=== PATIENT | female | born 1990 | race Caucasian/White ===

== ENCOUNTER → 2016-06-24 | Outpatient (CLI) | payer BC, OTHER ==
[2016-06-24 17:28] LABS: CH 30.6; CHCM 33.6; HCT 39.8 % (34.0-46.0); HDW 2.51; HGB 13.1 gm/dL (11.4-16.0); MCH 30.1 pg (25.0-35.0); MCV 91.3 fL (80.0-100.0); Mean Platelet Volume 6.9; RBC 4.36 m/uL (3.80-5.40); RDW 13.2 % (11.5-15.5); WBC 7.4 k/uL (3.8-10.6)
[2016-06-24 17:38] LABS: Glucose 93 mg/dL (74-99); Non-African American GFR(MDRD) >60 (>60 ml/min/1.73 sqM)
[2016-06-24 18:10] LABS: Hepatitis B Surface Ag Index 0.07
[2016-06-25 04:40] LABS: Toxoplasma Antibody (IgG) <3.0 IU/mL (<7.2)
[2016-06-25 07:36] LABS: HIV-1/HIV-2 Ab Screen NONREAC (NON REAC)
== END | disposition home or self-care (01) ==
LOC: LABWHC1 17:01
PROVIDERS: ATTEND Obstetrics & Gynecology
DX: Z34.81 Encounter for supervision of other normal pregnancy, first trimester (principal); Z3A.00 Weeks of gestation of pregnancy not specified
CPT/HCPCS: 36415; 82565; 82947; 85027; 86762; 86777; 86778; 86780; 86850; 86900; 86901; 87340; 87389

== ENCOUNTER → 2016-08-04 | Outpatient (CLI) | payer BC, OTHER ==
--- NOTE | 2016-08-04 10:07 | US ---
EXAMINATION TYPE: US OB anatomy transabd DATE OF EXAM: 08/04/2016 9:51 AM COMPARISON: NONE HISTORY: LGA, Anatomy Scan TECHNIQUE: Transabdominal (TA) EXAM MEASUREMENTS: GESTATIONAL AGE / DATING Physician Established: (19 weeks/0 days) EDC: 12/29/2016 Dates by LMP: (19 weeks/0 days) EDC: 12/29/2016 Dates by First Scan: No prior Dates by Current Scan for: (18 weeks/1 days) EDC: 01/04/2017 SURVEY IUP: Single PLACENTA: Posterior PREVIA: Low Lying YAMILETH: 12.2 cm Normal CERVICAL LENGTH (transabdominal: norm > 3.0cm): 3.6 cm BIOMETRY PRESENTATION: Breech BPD: 4.0 cm 18 weeks / 0 days HC: 15.4 cm 18 weeks / 2 days AC: 12.9 cm 18 weeks / 3 days FL: 2.8 cm 18 weeks / 3 days ESTIMATED WEIGHT IN GRAMS: 238 grams ESTIMATED WEIGHT IN LBS/OZS: 0 lbs. 8 oz. WEIGHT PERCENTAGE BASED ON ESTABLISHED DATE: 16 % HC/AC: 1.19 Normal FL/AC: 21 Normal HEART RATE: 160 bpm RHYTHM: Normal ANATOMY SEEN (within normal limits): * Lateral Vent (< 1 cm) 0.8 cm * Cisterna Magna (< 1.1 cm) 0.3 cm * Nuchal Fold (< 0.6 cm) 0.3 cm * Cerebellum (varies with age) 1.7 cm Choroid Plexus (bilateral) Midline Falx Cavus Septi Pellucidi Four Chamber Heart Outflow tracts: LVOT/RVOT Situs Nose / Lips Diaphragm Kidneys (bilateral) Bladder Cord Insert Three Vessel Cord Longitudinal Spine Transverse Spine Arms (bilateral) Legs (bilateral) ANATOMY SEEN (does not appear within normal limits): Stomach IMPRESSION: 1. Single, Viable IUP/ Low-lying posterior placenta/ Stomach appeared possibly overly distended/prom inent during entire exam. Recommend a short-term follow-up to assess the stomach post 20 weeks gestat ion.
== END | disposition home or self-care (01) ==
LOC: RADUSWWP 08:58
PROVIDERS: ATTEND Obstetrics & Gynecology
DX: O36.62X0 Maternal care for excessive fetal growth, second trimester, not applicable or unspecified (principal); Z3A.18 18 weeks gestation of pregnancy
CPT/HCPCS: 76811

== ENCOUNTER → 2016-09-15 | Outpatient (CLI) | payer BC, OTHER ==
[2016-09-15 10:35] LABS: CH 30.6; CHCM 32.6; HCT 33.8 % (34.0-46.0); HDW 3.04; HGB 11.1 gm/dL (11.4-16.0); MCHC 32.9 g/dL (31.0-37.0); MCV 94.2 fL (80.0-100.0); Mean Platelet Volume 7.4; RBC 3.59 m/uL (3.80-5.40); RDW 13.7 % (11.5-15.5); WBC 7.5 k/uL (3.8-10.6)
== END ==
LOC: LABWHC1 08:36
PROVIDERS: ATTEND Obstetrics & Gynecology
DX: Z34.82 Encounter for supervision of other normal pregnancy, second trimester (principal)
CPT/HCPCS: 36415; 82950; 85027

== ENCOUNTER 2016-09-28 10:41 | Outpatient (CLI) | payer BC, OTHER ==
[2016-09-28 11:00] LABS: Glucose,Whole Blood 81 mg/dL (75-99)
[2016-09-28 11:25] VITALS: BP 126/85; PULSE 102; RESP 16; TEMP 97
== END 2016-09-28 11:22 | disposition home or self-care (01) ==
LOC: FBPOP 10:41
PROVIDERS: ATTEND Obstetrics & Gynecology
DX: O26.92 Pregnancy related conditions, unspecified, second trimester (principal); Z3A.26 26 weeks gestation of pregnancy
CPT/HCPCS: 99213

== ENCOUNTER 2016-10-01 11:27 | Outpatient (CLI) | payer BC, OTHER ==
[2016-10-01 11:48] VITALS: BP 120/72; PULSE 121; RESP 20; TEMP 97
--- NOTE | 2016-10-01 13:51 | P.MSEPDOC ---
Presenting Problems - Arrival Data Date of Arrival on Unit: 10/01/16 Time of Arrival on Unit: 11:27 Mode of Transport: Ambulatory - Complaint OB-Reason for Admission/Chief Complaint: Other Medical History - Information : 2 Para: 1 Term: 1 : 0 Abortions: Spontaneous or Elective: 0 Number of Living Children: 1 - Gestational Age Expected Date of Delivery: 12/29/16 Gestational Age by LAURA (wks/days): 27 Weeks and 2 Days Review of Systems - Review of Systems Constitutional: No problems Breast: No problems ENT: No problems Cardiovascular: No problems Respiratory: No problems Gastrointestinal: No problems Genitourinary: No problems Musculoskeletal: No problems Neurological: No problems Skin: No problems Comment: removal of part of rt kidney and left ovary at age 15 for a 9#2oz cyst Vital Signs - Temperature Temperature: 97.0 F Temperature Source: Skin - Pulse Brachial Pulse Rate: 121 Pulse Assessment Method: Automatic Cuff - Respirations Respiratory Rate: 20 Oxygen Delivery Method: Room Air O2 Sat by Pulse Oximetry: 99 - Blood Pressure Right Arm Blood Pressure: 120/72 Blood Pressure Mean: 88 Blood Pressure Source: Automatic Cuff Medical Screen Scoring (Pre) - Maternal Vital Signs Maternal Temperature: N/A Maternal Blood Pressure: N/A Signs of Preeclampsia: N/A Maternal Respirations: N/A - Maternal Trauma Maternal Trauma: N/A - Assessment Baseline FHR: 150 Heart Rate - NICHD Category: Category I (Normal) = 0 - Total Score Total Score (Pre): 0 Medical Screen Scoring (Post) - Cervical Exam Dilation: Exam Deferred Effacement: Exam Deferred Membranes: Intact - Uterine Contractions Frequency: N/A Duration: N/A Intensity: N/A - Maternal Vital Signs Maternal Temperature: N/A Maternal Blood Pressure: N/A Signs of Preeclampsia: N/A Maternal Respirations: N/A - Maternal Trauma Maternal Trauma: N/A - Total Score Total Score (Post): 0 - Post Treatment Level of Risk Post Treatment Level of Risk: Low (0-5) Physician Notification (Post) - Physician Notified Physician Notified Date: 10/01/16 Physician Notified Time: 11:59 Physician/Practitioner Notified:: dr novoa Spoke With: dr novoa New Order Received: Yes - Notification Comment Comment: May discharge home Disposition - Disposition OB Disposition: Triage, Discharge to home, Written follow up instructions reviewed Discharge Date: 10/01/16 Discharge Time: 12:10 I agree with the RN Medical Screening Exam: Yes Risk & Benefit of care provided described in d/c instruction: Yes Diagnosis: PAROXYSMAL TACHYCARDIA, UNSPECIFIED (Pt referre)
== END 2016-10-01 12:09 | disposition home or self-care (01) ==
LOC: FBPOP 11:27
PROVIDERS: ATTEND Obstetrics & Gynecology
DX: O99.412 Diseases of the circulatory system complicating pregnancy, second trimester (principal); I47.9 Paroxysmal tachycardia, unspecified; Z3A.27 27 weeks gestation of pregnancy
CPT/HCPCS: 99213

== ENCOUNTER → 2016-10-06 | Outpatient (CLI) | payer BC, OTHER | END | disposition home or self-care (01) | LOC: LABWHC1 12:56 | PROVIDERS: ATTEND Internal Medicine Cardiovascular Disease | DX: R00.0 Tachycardia, unspecified (principal) | CPT/HCPCS: 36415; 84439; 84443 ==

== ENCOUNTER 2016-11-14 14:13 | Outpatient (CLI) | payer BC, OTHER ==
[2016-11-14 15:19] VITALS: BP 126/70; PULSE 100; RESP 18; TEMP 96.6
--- NOTE | 2016-11-15 06:13 | P.MSEPDOC ---
Presenting Problems - Arrival Data Date of Arrival on Unit: 11/14/16 Time of Arrival on Unit: 14:10 Mode of Transport: Wheelchair - Complaint OB-Reason for Admission/Chief Complaint: Vaginal Bleeding Medical History - Information : 2 Para: 1 Term: 1 : 0 Abortions: Spontaneous or Elective: 0 Number of Living Children: 1 - Gestational Age Expected Date of Delivery: 12/29/16 Gestational Age by LAUAR (wks/days): 33 Weeks and 5 Days Review of Systems - Review of Systems Constitutional: No problems Breast: No problems ENT: No problems Cardiovascular: No problems Respiratory: No problems Gastrointestinal: No problems Genitourinary: No problems Musculoskeletal: No problems Neurological: No problems Skin: No problems Vital Signs - Temperature Temperature: 96.6 F Temperature Source: Tympanic - Pulse Right Brachial Pulse Rate: 100 Pulse Assessment Method: Automatic Cuff - Respirations Respiratory Rate: 18 Oxygen Delivery Method: Room Air - Blood Pressure Right Arm Blood Pressure: 126/70 Blood Pressure Mean: 88 Blood Pressure Source: Automatic Cuff Medical Screen Scoring (Pre) - Cervical Exam Dilation: Exam Deferred Effacement: Exam Deferred Membranes: Intact - Uterine Contractions Frequency: > 5 minutes apart = 1 Duration: N/A Intensity: N/A - Maternal Vital Signs Maternal Temperature: N/A Maternal Blood Pressure: N/A Signs of Preeclampsia: N/A Maternal Respirations: N/A - Maternal Trauma Maternal Trauma: N/A - Assessment Baseline FHR: 130 Heart Rate - NICHD Category: Category I (Normal) = 0 NST: Reactive Position: N/A - Total Score Total Score (Pre): 1 - Level of Risk Level of Risk: Low (0-5) Physician Notification (Pre) - Physician Notified Physician Notified Date: 11/14/16 Physician Notified Time: 14:48 Physician/Practitioner Notifed:: Dr. Bill Spoke With: Dr. Bill New Order Received: Yes - Notification Comment Comment: discharge pt home with instructions to be on pelvic rest until she sees Dr. Bill in the office at next scheduled appt Medical Screen Scoring (Post) - Cervical Exam Dilation: Exam Deferred Effacement: Exam Deferred - Uterine Contractions Frequency: > 5 minutes apart = 1 Duration: N/A Intensity: N/A - Maternal Vital Signs Maternal Temperature: N/A Maternal Blood Pressure: N/A Signs of Preeclampsia: N/A Maternal Respirations: N/A - Maternal Trauma Maternal Trauma: N/A - Total Score Total Score (Post): 1 - Post Treatment Level of Risk Post Treatment Level of Risk: Low (0-5) Physician Notification (Post) - Physician Notified Physician Notified Date: 11/14/16 Physician Notified Time: 14:48 Physician/Practitioner Notified:: Dr. Bill Spoke With: Dr. Bill New Order Received: Yes - Notification Comment Comment: discharge pt home Disposition - Disposition OB Disposition: Physician follow up in office, Discharge to home, Written follow up instructions reviewed Discharge Date: 11/14/16 Discharge Time: 15:00 I agree with the RN Medical Screening Exam: Yes Risk & Benefit of care provided described in d/c instruction: Yes Diagnosis: 33 WEEKS GESTATION OF
== END 2016-11-14 15:00 | disposition home or self-care (01) ==
LOC: FBPOP 14:13
PROVIDERS: ATTEND Obstetrics & Gynecology
DX: O26.853 Spotting complicating pregnancy, third trimester (principal); Z3A.33 33 weeks gestation of pregnancy
CPT/HCPCS: 59025; 99213

== ENCOUNTER 2016-12-01 16:49 | Outpatient (CLI) | payer BC, OTHER ==
[2016-12-01 18:11] VITALS: BP 127/86; PULSE 108; RESP 18; TEMP 98
--- NOTE | 2016-12-01 20:25 | P.MSEPDOC ---
Presenting Problems - Arrival Data Date of Arrival on Unit: 12/01/16 Time of Arrival on Unit: 16:50 Mode of Transport: Ambulatory - Complaint OB-Reason for Admission/Chief Complaint: Other Comment: Complaints of contractions Medical History - Information : 2 Para: 1 Term: 1 : 0 Abortions: Spontaneous or Elective: 0 Number of Living Children: 1 - Gestational Age Expected Date of Delivery: 12/29/16 Gestational Age by LAURA (wks/days): 36 Weeks and 0 Days Review of Systems - Review of Systems Constitutional: No problems Breast: No problems ENT: No problems Cardiovascular: No problems Respiratory: No problems Gastrointestinal: No problems Genitourinary: No problems Musculoskeletal: No problems Neurological: No problems Skin: No problems Vital Signs - Temperature Temperature: 98 F Temperature Source: Oral - Pulse Right Brachial Pulse Rate: 108 Pulse Assessment Method: Automatic Cuff - Respirations Respiratory Rate: 18 Oxygen Delivery Method: Room Air - Blood Pressure Right Arm Blood Pressure: 127/86 Blood Pressure Mean: 99 Blood Pressure Source: Automatic Cuff Medical Screen Scoring (Pre) - Cervical Exam Dilation: 0 cm = 0 Membranes: Intact - Uterine Contractions Frequency: > or = 36 weeks =2 Duration: N/A Intensity: N/A - Maternal Vital Signs Maternal Temperature: N/A Maternal Blood Pressure: N/A Signs of Preeclampsia: N/A - Maternal Trauma Maternal Trauma: N/A - Assessment Baseline FHR: 140 Heart Rate - NICHD Category: Category I (Normal) = 0 - Total Score Total Score (Pre): 2 - Level of Risk Level of Risk: Low (0-5) Physician Notification (Pre) - Physician Notified Physician Notified Date: 12/01/16 Physician Notified Time: 17:39 Physician/Practitioner Notifed:: Dr. Meek Spoke With: Dr. Meek New Order Received: Yes (Oral hydration and recheck pt in one hour) - Notification Comment Comment: Dr. Meek given report on pt, order recieved to orally hydrate pt, monitor contractions, and recheck cervix in one hour from phone call. Medical Screen Scoring (Post) - Cervical Exam Dilation: 0 cm = 0 Membranes: Intact - Uterine Contractions Frequency: > or = 36 weeks =2 - Maternal Vital Signs Maternal Temperature: N/A Maternal Blood Pressure: N/A Signs of Preeclampsia: N/A Maternal Respirations: N/A - Maternal Trauma Maternal Trauma: N/A - Assessment Heart Rate: 140 Heart Rate - NICHD Category: Category I (Normal) = 0 - Total Score Total Score (Post): 2 - Post Treatment Level of Risk Post Treatment Level of Risk: Low (0-5) Physician Notification (Post) - Physician Notified Physician Notified Date: 12/01/16 Physician Notified Time: 17:39 Physician/Practitioner Notified:: Dr. Meek Spoke With: Dr. Meek New Order Received: Yes (Discharge pt to home) - Notification Comment Comment: Discharge pt to home if no cervical change and reactive nst one hour after initial cervical check Disposition - Disposition OB Disposition: Discharge to home Discharge Date: 12/01/16 Discharge Time: 18:50 I agree with the RN Medical Screening Exam: Yes Risk & Benefit of care provided described in d/c instruction: Yes Diagnosis: FALSE LABOR BEFORE 37 COMPLETED WEEKS OF GEST, THIRD TRI
== END 2016-12-01 18:50 | disposition home or self-care (01) ==
LOC: FBPOP 16:49
PROVIDERS: ATTEND Obstetrics & Gynecology
DX: O47.03 False labor before 37 completed weeks of gestation, third trimester (principal); Z3A.36 36 weeks gestation of pregnancy
CPT/HCPCS: 99213

== ENCOUNTER 2016-12-12 17:35 | Outpatient (CLI) | payer BC, OTHER ==
[2016-12-12 18:47] VITALS: BP 124/85; PULSE 128; RESP 18; TEMP 97.6
--- NOTE | 2016-12-13 06:29 | P.MSEPDOC ---
Presenting Problems - Arrival Data Date of Arrival on Unit: 12/12/16 Time of Arrival on Unit: 17:40 Mode of Transport: Ambulatory - Complaint OB-Reason for Admission/Chief Complaint: Possible Onset of Labor Medical History - Information : 2 Para: 1 Term: 1 : 0 Abortions: Spontaneous or Elective: 0 Number of Living Children: 1 - Gestational Age Expected Date of Delivery: 12/29/16 Gestational Age by LAURA (wks/days): 37 Weeks and 5 Days Review of Systems - Review of Systems Constitutional: No problems Breast: No problems ENT: No problems Cardiovascular: No problems Respiratory: No problems Gastrointestinal: No problems Genitourinary: No problems Musculoskeletal: No problems Neurological: No problems Skin: No problems Vital Signs - Temperature Temperature: 97.6 F Temperature Source: Oral - Pulse Right Brachial Pulse Rate: 128 Pulse Assessment Method: Automatic Cuff - Respirations Respiratory Rate: 18 Oxygen Delivery Method: Room Air O2 Sat by Pulse Oximetry: 98 - Blood Pressure Right Arm Blood Pressure: 124/85 Blood Pressure Mean: 98 Blood Pressure Source: Automatic Cuff Medical Screen Scoring (Pre) - Cervical Exam Dilation: 1-3 cm = 1 Membranes: Intact - Uterine Contractions Frequency: > or = 36 weeks =2 Duration: > 40 seconds = 2 Intensity: N/A - Maternal Vital Signs Maternal Temperature: N/A Maternal Blood Pressure: N/A Signs of Preeclampsia: N/A Maternal Respirations: N/A - Maternal Trauma Maternal Trauma: N/A - Assessment Baseline FHR: 150 Heart Rate - NICHD Category: Category I (Normal) = 0 NST: Reactive Position: N/A Station: N/A - Total Score Total Score (Pre): 5 - Level of Risk Level of Risk: Low (0-5) Physician Notification (Pre) - Physician Notified Physician/Practitioner Notifed:: Dr. Bill Spoke With: Dr. Bill New Order Received: Yes (D/c pt to home) Medical Screen Scoring (Post) - Cervical Exam Dilation: 4-7 cm = 2 Membranes: Intact - Uterine Contractions Frequency: > or = 36 weeks =2 Duration: N/A Intensity: N/A - Maternal Vital Signs Maternal Temperature: N/A Maternal Blood Pressure: N/A Signs of Preeclampsia: N/A Maternal Respirations: N/A - Maternal Trauma Maternal Trauma: N/A - Assessment Heart Rate: 150 Heart Rate - NICHD Category: Category I (Normal) = 0 NST: Reactive Position: N/A Station: N/A - Total Score Total Score (Post): 4 - Post Treatment Level of Risk Post Treatment Level of Risk: Low (0-5) Physician Notification (Post) - Physician Notified Physician Notified Date: 12/12/16 Physician Notified Time: 19:12 Physician/Practitioner Notified:: Dr. Bill Spoke With: Dr. Bill New Order Received: Yes (D/c pt to home) Disposition - Disposition OB Disposition: Discharge to home Discharge Date: 12/12/16 Discharge Time: 19:20 I agree with the RN Medical Screening Exam: Yes Risk & Benefit of care provided described in d/c instruction: Yes Diagnosis: FALSE LABOR AT OR AFTER 37 COMPLETED WEEKS OF GESTATION
== END 2016-12-12 19:20 | disposition home or self-care (01) ==
LOC: FBPOP 17:35
PROVIDERS: ATTEND Obstetrics & Gynecology
DX: O47.1 False labor at or after 37 completed weeks of gestation (principal); Z3A.37 37 weeks gestation of pregnancy
CPT/HCPCS: 59025; 99213

== ENCOUNTER 2016-12-23 05:51 | Inpatient (IN) | payer BC, OTHER ==
[2016-12-23] MEDS ORDERED: METHYLERGONOVINE 0.2 MG/ML 1 ML AMP IM PRN (06:03)
[2016-12-23] MEDS ORDERED: LIDOCAINE 1% (PF) 10 MG/ML (30 ML SDV) SQ PRN (06:03)
[2016-12-23] MEDS ORDERED: OXYTOCIN 10 UNIT/ML 1 ML VIAL IM PRN (06:03)
[2016-12-23] MEDS ORDERED: CARBOPROST TROMETHAMINE 250 MCG/ML 1 ML AMP IM PRN (06:03)
[2016-12-23] MEDS ORDERED: TERBUTALINE 1 MG/ML VIAL SQ PRN (06:03)
[2016-12-23] MEDS ORDERED: OXYTOCIN 20 UNITS/1000 ML NS 1,000 ML IV SCH ×2 (06:03→13:20)
[2016-12-23 06:14] LABS: Basophils % (A) 0 %; CHCM 31.7; Eosinophils # (A) 0.2 k/uL (0-0.7); Eosinophils % (A) 4 %; HCT 32.3 % (34.0-46.0); HDW 3.57; HGB 10.1 gm/dL (11.4-16.0); Hypochromasia Moderate; Luc # (Auto) 0.09; Luc % (Auto) 1; Lymphocytes # (A) 1.9 k/uL (1.0-4.8); Lymphocytes % (A) 29 %; MCH 25.9 pg (25.0-35.0); MCHC 31.4 g/dL (31.0-37.0); MCV 82.4 fL (80.0-100.0); Mean Platelet Volume 9.9; Monocytes # (A) 0.3 k/uL (0-1.0); Monocytes % (A) 5 %; Neutrophils % (A) 61 %; Poikilocytosis Slight; RBC 3.92 m/uL (3.80-5.40); RDW 15.9 % (11.5-15.5); WBC 6.5 k/uL (3.8-10.6); WBC (Perox) 6.61
[2016-12-23] MEDS: LACTATED RINGERS 1,000 ML IV SCH ×2 (06:16→09:26)
--- NOTE | 2016-12-23 06:36 | P.HPOB ---
History of Present Illness H&P Date: 12/23/16 Chief Complaint: Patient is requesting elective induction This patient is a pleasant 26-year-old 2 para 1 female estimated date of confinement 12/29/2016 estimated gestational age 39 and one sevenths weeks who presents to labor and delivery for requested induction of labor. Patient's care has been complicated by benign sinus tachycardia (maternal). I referred the patient to cardiology evaluation was negative but was placed on Lopressor 25 mg twice a day due to symptomatic sinus tachycardia. Patient also had a positive chlamydial culture at her initial visit however had 2 negative test of cures. Patient's been having a lot of contractions and is uncomfortable as requested induction at this time. Review of Systems Constitutional: Denies chills, Denies fever Ears, nose, mouth and throat: Denies headache, Denies sore throat Cardiovascular: Reports as per HPI, Reports rapid heart beat, Denies chest pain , Denies shortness of breath Respiratory: Denies cough Gastrointestinal: Reports heartburn Genitourinary: Reports Menstruation: Reports amenorrhea Neurological: Denies numbness, Denies weakness Psychiatric: Denies anxiety, Denies depression Past Medical History Additional Past Medical History / Comment(s): Benign sinus tachycardia. History of Any Multi-Drug Resistant Organisms: None Reported Additional Past Surgical History / Comment(s): Laparotomy with left oophorectomy. Past Anesthesia/Blood Transfusion Reactions: No Reported Reaction Past Psychological History: No Psychological Hx Reported Smoking Status: Never smoker Past Alcohol Use History: None Reported Past Drug Use History: None Reported Medications and Allergies Home Medications Medication Instructions Recorded Confirmed Type Vit,Calc78/Iron/Folic 1 tab PO DAILY 08/31/16 12/23/16 History [Pretab 29 mg-1 mg Tablet] Metoprolol/Hydrochlorothiazide 25 mg PO BID 11/14/16 12/23/16 History [Lopressor Hct 50-25 Tablet] Allergies Allergy/AdvReac Type Severity Reaction Status Date / Time No Known Allergies Allergy Verified 12/23/16 06:02 Exam - Vital Signs Vital signs: Intake and Output 12/22/16 12/22/16 12/23/16 14:59 22:59 06:59 Other: Weight 75.75 kg Patient Weight 12/23/16 06:59 Weight 75.75 kg - OBG Physical Exam Abdomen: bowel sounds normal, no diffuse tenderness, no bruit present, no guarding noted, no hepatomegaly, no splenomegaly, no mass Vagina: normal moisture, no discharge Cervix: Cervix is 4 cm and 50% effaced -2 station. Uterus: enlarged (Fundal height is consistent with a term .) Results blood work shows she is A positive, rubella immune, RPR nonreactive, hepatitis B negative, HIV nonreactive, group B strep was negative, Glucola was normal, ultrasounds have been normal as well. Result Diagrams: 12/23/16 06:06 Abnormal Lab Results - Last 24 Hours (Table) 12/23/16 Range/Units 06:06 Hgb 10.1 L (11.4-16.0) gm/dL Hct 32.3 L (34.0-46.0) % RDW 15.9 H (11.5-15.5) % Assessment and Plan (1) Third trimester Narrative/Plan: This patient is a pleasant 26-year-old 2 para 1 female 39 and one sevenths weeks gestation who is presenting for requested induction of labor due to maternal discomfort. Plan is induction of labor and anticipate vaginal delivery. Status: Acute (2) Elective induction of labor planned Status: Acute
[2016-12-23 06:44] VITALS: BMI 27.8
[2016-12-23] MEDS ORDERED: fentaNYL (PF) 50 MCG/ML 5 ML AMP ONE (08:56)
[2016-12-23] MEDS ORDERED: BUPIVACAINE (PF) 0.25% 30 ML VIAL ONE (08:56)
[2016-12-23] MEDS ORDERED: SODIUM CHLORIDE 0.9% 100 ML BAG ONE (08:56)
--- NOTE | 2016-12-23 13:12 | P.PROBDLV ---
Vaginal Delivery Note - . Vaginal Delivery Note: Normal vaginal delivery viable female Apgars 9 and 9 delivery time is 1252 hrs. . Please see dictated H&P for intimate details of this patient's admission. Brief summary this is a pleasant 26-year-old 2 para 1 female 39 and one sevenths weeks gestation who is admitted to labor and delivery for elective induction of labor. Patient is 4 cm dilated and has artificial rupture membranes for clear fluid. Labor is induced with Pitocin per protocol. Patient 's labor progresses and she does get an epidural for pain control. Patient gets to complete pushes the head to the perineum. Posterior perineum was supported and a midline episiotomy is made. We then have controlled delivery of infant's head over the perineum. It is straight occiput posterior presentation. There is also a tight nuchal cord which is doubly clamped cut reduced. Mouth and nares are bulb suctioned. With gentle downward traction we then have deliver the anterior and posterior shoulder and rest this 's body. This is a vigorous viable female Apgars are 9 and 9 delivery time is 1252 hrs After delivery of the the placenta spontaneously delivered intact. Estimated blood loss is 100 mL. Inspection of perineum shows a second- degree laceration was repaired with 3-0 Vicryl usual fashion excellent reapproximation is noted. All counts are correct 3. There are no complications. Infant and mother are stable delivery room.
[2016-12-23] MEDS ORDERED: SIMETHICONE 80 MG CHEWABLE PO PRN (13:20)
[2016-12-23] MEDS ORDERED: BENZOCAINE/MENTHOL SPRAY 1 GM/SPRAY AEROSOL TOPICAL PRN (13:20)
[2016-12-23] MEDS ORDERED: diphenhydrAMINE 25 MG CAP PO PRN (13:20)
[2016-12-23] MEDS ORDERED: Acetaminophen-Codeine 300-30mg TAB PO PRN ×2 (13:20)
[2016-12-23] MEDS ORDERED: LANOLIN CREAM 5 GM TUBE TOPICAL PRN (13:20)
[2016-12-23] MEDS ORDERED: diphenhydrAMINE 50 MG/ML 1 ML VIAL IVP PRN (13:20)
[2016-12-23] MEDS ORDERED: WITCH HAZEL 1 EACH MED..PAD TOPICAL PRN (13:20)
[2016-12-23] MEDS ORDERED: ACETAMINOPHEN TAB 325 MG TAB PO PRN (13:20)
[2016-12-23] MEDS ORDERED: BISACODYL 10 MG SUPP RECTAL PRN (13:20)
[2016-12-23] MEDS ORDERED: DIPH,PERTUS(ACELL)TETVAC-LF 0.5 ML VIAL IM ONE (13:20)
[2016-12-23] MEDS ORDERED: HYDROCORTISONE 2.5% RECTAL CREAM 30 GM TUBE RECTAL PRN (13:20)
[2016-12-23] MEDS ORDERED: ZOLPIDEM 5 MG TAB PO PRN (13:20)
[2016-12-23] MEDS: SENNOSIDES-DOCUSATE SODIUM 1 EACH TAB PO SCH ×2 (20:24→21:29)
[2016-12-23] MEDS: METOPROLOL TARTRATE 25 MG TAB PO SCH ×2 (21:28)
[2016-12-23] MEDS: IBUPROFEN 600 MG TAB PO PRN (21:29)
--- NOTE | 2016-12-24 06:29 | P.PNOBGVD ---
Subjective - Subjective Patient reports: Reports appetite normal, Reports voiding normally, Reports pain well controlled, Reports ambulating normally : doing well Objective - Latest Vital Signs Latest vital signs: Vital Signs Temp Pulse Resp BP Pulse Ox 12/24/16 00:00 98.4 F 77 14 111/77 99 12/23/16 19:30 98.3 F 96 16 131/79 98 12/23/16 15:47 106 H 16 126/80 12/23/16 15:21 98.9 F 106 H 16 126/80 12/23/16 14:51 98 16 115/85 12/23/16 14:20 98.9 F 101 H 16 124/84 12/23/16 14:06 99 16 132/87 12/23/16 13:51 96 16 124/83 12/23/16 13:36 94 16 123/83 12/23/16 13:21 108 H 16 127/83 Intake and Output 12/23/16 12/23/16 12/24/16 14:59 22:59 06:59 Intake Total 75 Balance 75 Intake: Oral 75 Other: # Voids 1 1 - Exam Lungs: bilateral: normal Chest: Normal S1, Normal S2 Extremities: Present: normal Abdomen: Present: normal appearance, soft Uterus: Present: normal, firm Assessment and Plan (1) Third trimester Narrative/Plan: day #1. Patient is resting without complaints wishes to go home. Vital signs are stable she is afebrile. Uterus is firm nontender she's having normal lochia. My impression this is a normal course. Plan is to continue routine care discharge home later today. Current Visit: Yes Status: Acute Code(s): Z34.93 - ENCNTR FOR SUPRVSN OF NORMAL PREG, UNSP, THIRD TRIMESTER SNOMED Code(s): 74647578 (2) Elective induction of labor planned Current Visit: Yes Status: Acute Code(s): [id number] - SNOMED Code(s): 822263111
--- NOTE | 2016-12-24 06:30 | P.DS ---
Providers Date of admission: 12/23/16 05:51 Expected date of discharge: 12/24/16 Attending physician: Avery Bill Primary care physician: Stated None - Discharge Diagnosis(es) (1) Third trimester Current Visit: Yes Status: Acute (2) Elective induction of labor planned Current Visit: Yes Status: Acute Hospital Course: Please see dictated H&P for intimate details of this patient's admission. Brief summary this is a pleasant 26-year-old 2 para 1 female 39 and one sevenths weeks gestation admitted to labor and delivery for requested induction of labor. Patient is admitted has uncomplicated induction of labor quickly goes on have a vaginal delivery viable female . Please see dictated delivery note. day 1 patient's felt stable for discharge home follow up with me in 6 weeks. Procedures: Induction of labor and normal vaginal delivery. Patient Condition at Discharge: Good Plan - Discharge Summary New Discharge Prescriptions: New Acetaminophen-Codeine 300-30mg [Tylenol w/codeine #3] 1 - 2 each PO Q4HR PRN #30 tab PRN Reason: Mild Pain exceeding Tylenol Ibuprofen [Motrin] 600 mg PO Q6HR PRN #40 tab PRN Reason: Mild Pain Or Fever >= 100.5 No Action Vit,Calc78/Iron/Folic [Pretab 29 mg-1 mg Tablet] 1 tab PO DAILY Metoprolol/Hydrochlorothiazide [Lopressor Hct 50-25 Tablet] 25 mg PO BID Discharge Medication List Vit,Calc78/Iron/Folic [Pretab 29 mg-1 mg Tablet] 1 tab PO DAILY [History] Metoprolol/Hydrochlorothiazide [Lopressor Hct 50-25 Tablet] 25 mg PO BID [History] Acetaminophen-Codeine 300-30mg [Tylenol w/codeine #3] 1 - 2 each PO Q4HR PRN # 30 tab 12/24/16 [Rx] Ibuprofen [Motrin] 600 mg PO Q6HR PRN #40 tab 12/24/16 [Rx] Follow up Appointment(s)/Referral(s): Avery Bill MD [STAFF PHYSICIAN] - 02/03/17 2:30 pm Patient Instructions/Handouts: Vaginal Delivery (DC) Activity/Diet/Wound Care/Special Instructions: No intercourse or anything per vagina for 6 weeks. Please call if any fever, chills, excessive vaginal bleeding, and/or abdominal pain Discharge Disposition: HOME SELF-CARE
[2016-12-24] MEDS: IBUPROFEN 600 MG TAB PO PRN (07:27)
[2016-12-24] MEDS: SENNOSIDES-DOCUSATE SODIUM 1 EACH TAB PO SCH (07:27)
[2016-12-24 08:25] VITALS: BP 115/66; PULSE 76; RESP 16; TEMP 98.3
[2016-12-24] MEDS: METOPROLOL TARTRATE 25 MG TAB PO SCH (08:33)
== END 2016-12-24 13:45 | disposition home or self-care (01) | DRG 774 ==
LOC: 4FBP 05:51
PROVIDERS: ADMIT Obstetrics & Gynecology; ATTEND Obstetrics & Gynecology
PROC: 0KQM0ZZ Repair Perineum Muscle, Open Approach (ICD-10-PCS; principal; 2016-12-23)
PROC: 00HU33Z Insertion of Infusion Device into Spinal Canal, Percutaneous Approach (ICD-10-PCS; 2016-12-23)
PROC: 3E0R3CZ (ICD-10-PCS; 2016-12-23)
PROC: 3E033VJ Introduction of Other Hormone into Peripheral Vein, Percutaneous Approach (ICD-10-PCS; 2016-12-23)
DX: O99.42 Diseases of the circulatory system complicating childbirth (principal); O69.1XX0 Labor and delivery complicated by cord around neck, with compression, not applicable or unspecified; O70.1 Second degree perineal laceration during delivery; Z37.0 Single live birth; Z3A.39 39 weeks gestation of pregnancy; Z79.899 Other long term (current) drug therapy
CPT/HCPCS: 85025; 88307; 90471; 90715

== ENCOUNTER → 2017-11-14 | Outpatient (CLI) | payer BC, OTHER ==
[2017-11-14 15:27] LABS: Basophils % (A) 1 %; Eosinophils # (A) 0.4 k/uL (0-0.7); Eosinophils % (A) 8 %; HCT 38.8 % (34.0-46.0); HGB 12.8 gm/dL (11.4-16.0); Lymphocytes # (A) 1.8 k/uL (1.0-4.8); Lymphocytes % (A) 34 %; MCH 28.9 pg (25.0-35.0); MCV 87.5 fL (80.0-100.0); Mean Platelet Volume 7.4; Monocytes # (A) 0.3 k/uL (0-1.0); Monocytes % (A) 6 %; Neutrophils # (A) 2.6 k/uL (1.3-7.7); Neutrophils % (A) 51 %; Platelet Count 240 k/uL (150-450); RBC 4.43 m/uL (3.80-5.40); RDW 14.1 % (11.5-15.5); WBC 5.2 k/uL (3.8-10.6)
[2017-11-15 02:20] LABS: Hemoglobin A1C 5.5 % (4.0-6.0)
[2017-11-15 02:34] LABS: Thyroid Peroxidase Antibodies <28.0 U/mL (0.0-60.0)
--- NOTE | 2017-11-15 07:38 | US ---
EXAMINATION TYPE: US thyroid st tissue head/neck DATE OF EXAM: 11/14/2017 COMPARISON: NONE CLINICAL HISTORY: E04.1 Thyroid Nodule. GLAND SIZE: Right Lobe: 6.0 x 1.0 x 1.8 cm Overall Parenchyma: homogenous Left Lobe: 5.4 x 1.2 x 1.6 cm Overall Parenchyma: homogeneous Isthmus Thickness: 0.2 cm NODULES RIGHT: # of nodules measured on right: 0 LEFT: # of nodules measured on left: 0 ISTHMUS: # of nodules measured in the isthmus: 0 Bilateral neck scanned, no evidence of lymphadenopathy. IMPRESSION: Thyroid glandular enlargement without discrete nodule seen.
[2017-11-15 09:05] LABS: Lyme IgG/IgM 0.1 Index
[2017-11-15 14:09] LABS: C-ANCA <1:20 Titer (<1:20); P-ANCA <1:20 Titer (<1:20)
[2017-11-15 14:38] LABS: Zinc, Serum 71 ug/dL (60-130)
== END | disposition home or self-care (01) ==
LOC: RADUSWWP 14:53
PROVIDERS: ATTEND Otolaryngology
DX: E04.9 Nontoxic goiter, unspecified (principal); R43.0 Anosmia; R43.2 Parageusia
CPT/HCPCS: 76536; 82607; 83036; 84439; 84443; 84630; 85025; 86038; 86255; 86376; 86618

== ENCOUNTER → 2017-11-28 | Outpatient (CLI) | payer BC, OTHER ==
--- NOTE | 2017-11-28 10:53 | MR ---
EXAMINATION TYPE: MR brain wo/w con DATE OF EXAM: 11/28/2017 COMPARISON: NONE HISTORY: Headache, loss of smell and taste TECHNIQUE: Multiplanar, multisequence imaging of the brain and brainstem is performed without IV cont rast. FINDINGS: Diffusion weighted images demonstrate no evidence of a recent infarct or other diffusion abnormality. There is no extraaxial fluid collection or significant white matter signal abnormality. The ventricu lar system and cisternal spaces are normal in size and appearance. The brain volume is age appropria te. No suspicious fluid signal bilateral mastoid air cells is present. Midline structures demonstrate normal morphology. The craniocervical junction appears within normal limits. Normal vascular flow voids are present. There is distortion at level of anterior globes bilat erally. There is moderate mucosal thickening in both sphenoid sinuses with suspected patchy fluid inf eriorly. There is moderate mucosal thickening in ethmoid sinuses bilaterally, left greater than right with some patchy opacification. There is mild mucosal thickening involving left frontal sinus IMPRESSION: Acute on chronic paranasal sinus disease as detailed above. No suspicious enhancement is noted.
== END | disposition home or self-care (01) ==
LOC: RADMRIMAIN 09:44
PROVIDERS: ATTEND Otolaryngology
DX: R51 Headache (principal)
CPT/HCPCS: 70553; A9581

== ENCOUNTER 2018-01-11 07:44 | Day surgery (SDC) | payer BC, OTHER ==
[2018-01-03 16:11] VITALS: BMI 25.7
[~2018-01-11 07:44] MED LIST: DEXAMETHASONE SOD PHOSPHATE 10 MG/ML 1 ML VIAL IV ONE; DEXAMETHASONE SOD PHOSPHATE 4 MG/ML 1 ML VIAL IV ONE; FAMOTIDINE 20 MG/2 ML VIAL IV ONE; LACTATED RINGERS 1,000 ML IV SCH; MIDAZOLAM 2 MG/2 ML VIAL IV PRN; ONDANSETRON 4 MG/2 ML VIAL IVP ONE; ceFAZolin 1,000 MG in DEXTROSE/WATER 1 50ML.BAG IV ONE; fentaNYL (PF) 50 MCG/ML 2 ML AMP IV PRN
[2018-01-11] MEDS: OXYMETAZOLINE 0.05% NASL SPRAY 1 SPRAY BOTTLE NASAL ONE ×5 (07:55→08:30)
[2018-01-11] MEDS ORDERED: LIDOCAINE 1% 20 ML VIAL (10MG/ML) FOR IV START INTRADERMA ONE (08:15)
[2018-01-11] MEDS ORDERED: SUCCINYLCHOLINE CHLORIDE 100 MG/5 ML SYR IV ONE (08:35)
[2018-01-11] MEDS ORDERED: LIDOCAINE 1% INJ 10MG/ML (20 ML MDV) ONE (08:35)
[2018-01-11] MEDS ORDERED: HYDROmorphone (PF) 1 MG/ML ONE (08:35)
[2018-01-11] MEDS ORDERED: PROPOFOL 10 MG/ML 20 ML VIAL IV ONE (08:35)
[2018-01-11] MEDS ORDERED: MIDAZOLAM 2 MG/2 ML VIAL ONE (08:35)
[2018-01-11] MEDS ORDERED: fentaNYL (PF) 50 MCG/ML 2 ML AMP ONE (08:35)
[2018-01-11] MEDS ORDERED: ROCURONIUM BROMIDE 10 MG/ML 10 ML VIAL IV ONE (08:35)
[2018-01-11] MEDS ORDERED: DEXAMETHASONE SOD PHOS (MDV) 100 MG/10 ML VIAL ONE (08:35)
[2018-01-11] MEDS ORDERED: LIDOCAINE 1%-EPI 1:100,000 20 ML VIAL SUBMUCOSAL ONE ×2 (08:57)
[2018-01-11] MEDS ORDERED: LACTATED RINGERS 1,000 ML IV ONE (09:21)
[2018-01-11] MEDS ORDERED: BACITRACIN 500 UNIT/GM OINT 28.4 GM TUBE TOPICAL ONE (09:51)
--- NOTE | 2018-01-11 10:01 | P.OP ---
Date of Procedure: 01/11/18 Preoperative Diagnosis: Deviated nasal septum Inferior turbinate hypertrophy Chronic sinusitis Postoperative Diagnosis: Same Procedure(s) Performed: Septoplasty Outfracture and submucous resection of the inferior turbinates Bilateral endoscopic sinus surgery including bilateral maxillary antrostomy left frontal sinusotomy and bilateral sphenoid sinusotomy Anesthesia: ROMAIN Surgeon: Jovan Bermeo Estimated Blood Loss (ml): 5 Pathology: other (Nasal septal bone and cartilage and sinus contents) Condition: stable Disposition: PACU Indications for Procedure: Is a 27-year-old white female whose had difficulties with hyposmia which prompted MRI which showed chronic sinusitis. She antibiotics but then her symptoms recurred. She also has long-term nasal airway obstruction and congestion as well as recurrent sinusitis. Operative Findings: Nasal septum deviated to the left the inferior turbinate hypertrophy bilaterally chronic inflammation in the ethmoid sinuses diffusely bilaterally with maxillary ostia obstructed. The sphenoid sinuses and left frontal sinus had mild mucosal thickening but no drainage. Description of Procedure: Patient was brought in the operative suite and placed in a supine position. The patient underwent induction of general anesthesia with oral endotracheal intubation without difficulty. The patient was prepped and draped in usual aseptic fashion. The orbits were in the operating field for monitoring throughout The case and MRI was on the computer screen for review throughout the case also. 1% lidocaine with 1-100,000 epinephrine was infused submucosally both sides nasal septum as well as lateral nasal gonzalez and anterior tips the middle turbinates bilaterally. While this was taking vasoconstrictive effect the inferior turbinates were infractured with Haskell elevator partial submucous resection inferior turbinates was performed with Coblation device thus ablating a portion of the soft tissue submucosally and then outfractured with the Haskell elevator. A left hemitransfixion incision was made with the mucoperichondrial mucoperiosteal flap on left elevated. Bony cartilaginous junction was disarticulated and mucoperiosteal flap on the right was elevated. Bony nasal septal deformities were removed Meron's forceps.. An inferior cartilaginous strip was removed leaving a full 1.5 cm caudal strut. Checking intranasally this corrected the nasoseptal deformities and the hemitransfixion incision was closed with a running 4-0 chromic suture. Full 0 endoscopic examination is performed bilaterally. Beginning on the left the middle turbinate was medialized and maxillary sinus ostium was located with a ballpoint probe and infundibulotomy was performed followed by uncinectomy. Maxillary sinus ostium was enlarged at the expense of the anterior and posterior fontanelle taking care anteriorly not the lacrimal bone. The maxillary sinus was evaluated 30 endoscope and all mucosal thickening noted. Anterior posterior ethmoidectomy was then performed with microdebrider from anterior to posterior to the level skull base with diffuse polypoid mucosa and the roof the anterior ethmoid air cells cleaned from posterior to anterior. The nasofrontal was located. Balloon sinus plasty was performed of the left frontal sinus as well as sphenoid sinus with the entellus light guided system. The frontal and sphenoid sinus was then explored and evaluated with additional tissue removed from the ostium. Mild mucosal thickening was noted in both sinuses. Attention was then turned to the right where the procedures were followed as they were on the left including medialization middle turbinate infundibulotomy uncinectomy anterior posterior ethmoidectomy and balloon sinus plasty with tissue and exploration of the right sphenoid sinus. Once this completed a pledget of standard nasal pore nasal dressing was placed in midposition bilaterally. Bilateral Lu airway splints coated bacitracin ointment were placed in nasal cavities and sutured trans-septally with a 4-0 nylon suture. Once this was completed the patient was suctioned in oral gastric fashion. Patient was allowed to emerge from anesthesia having tolerated procedure well was excised in the operating suite and transferred postoperative recovery area in satisfactory condition
[2018-01-11 10:27] VITALS: TEMP 96.8
[2018-01-11 10:39] VITALS: RESP 16
[2018-01-11] MEDS ORDERED: HYDROcodone/APAP 5-325MG 1 EACH TAB PO ONE (11:28)
[2018-01-11 12:09] VITALS: BP 111/78; PULSE 82
== END 2018-01-11 12:16 | disposition home or self-care (01) ==
LOC: OR 07:44
PROVIDERS: ATTEND Otolaryngology
DX: J32.9 Chronic sinusitis, unspecified (principal); J34.2 Deviated nasal septum; J34.3 Hypertrophy of nasal turbinates; Z79.2 Long term (current) use of antibiotics; Z79.51 Long term (current) use of inhaled steroids; Z79.52 Long term (current) use of systemic steroids; Z79.899 Other long term (current) drug therapy
CPT/HCPCS: 81025; 88305; 88300; 30140; 30520; 31267; 31253; 31259; C1726; J2250; J1100 ×2; J2405; J2001; J3010; J1170; J0690; J0330; J2704

== ENCOUNTER 2019-01-25 12:40 | Emergency (ER) | payer BC, OTHER ==
[2019-01-25] MEDS ORDERED: DIPH,PERTUS(ACELL)TETVAC-LF 0.5 ML VIAL IM ONE (13:45)
[2019-01-25] MEDS ORDERED: TOPICAL SKIN ADHESIVE 1 EACH AMP TOPICAL ONE (13:45)
--- NOTE | 2019-01-25 14:50 | ED ---
Wound/Laceration HPI - General Chief Complaint: Wound/Laceration Stated Complaint: Finger laceration Time Seen by Provider: 01/25/19 13:26 Source: patient Mode of arrival: ambulatory Limitations: no limitations - History of Present Illness Initial Comments: Patient is a 29-year-old female presenting to emergency Department with complaints of a laceration on her left index finger that happened prior to arrival. 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 Patient states that Neisler recently sharpened. There is no active bleeding at this time. Patient denies being on blood thinner. Patient is unaware of her last tetanus vaccine. Patient has no other complaints at this time. Upon arrival to ER vital signs are stable, afebrile. - Related Data Home Medications Medication Instructions Recorded Confirmed Acetaminophen Tab [Tylenol Tab] 650 mg PO Q6H PRN 01/03/18 01/03/18 Allergies Allergy/AdvReac Type Severity Reaction Status Date / Time No Known Allergies Allergy Verified 01/25/19 13:14 Review of Systems ROS Statement: Those systems with pertinent positive or pertinent negative responses have been documented in the HPI. ROS Other: All systems not noted in ROS Statement are negative. Past Medical History Past Medical History: No Reported History Additional Past Medical History / Comment(s): BENIGN SINUS TACHYCARDIA (DURING ) (STATES DURING ), SINSUS INFECTION- CONGESTION., 1/2 OF RIGHT KIDNEY REMOVED. History of Any Multi-Drug Resistant Organisms: None Reported Past Surgical History: No Surgical Hx Reported Additional Past Surgical History / Comment(s): Laparotomy with left oophorectomy. 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 Past Anesthesia/Blood Transfusion Reactions: No Reported Reaction Past Psychological History: No Psychological Hx Reported Smoking Status: Never smoker Past Alcohol Use History: None Reported Past Drug Use History: None Reported - Past Family History Father Family Medical History: Hypertension General Exam - General Exam Comments Initial Comments: GENERAL: Well-appearing, well-nourished and in no acute distress. HEAD: Atraumatic, normocephalic. EYES: Pupils equal round and reactive to light, extraocular movements intact, sclera anicteric, conjunctiva are normal. ENT: TMs normal, nares patent, oropharynx clear without exudates. Moist mucous membranes. NECK: Normal range of motion, supple without lymphadenopathy or JVD. LUNGS: Breath sounds clear to auscultation bilaterally and equal. No wheezes rales or rhonchi. HEART: Regular rate and rhythm without murmurs, rubs or gallops. ABDOMEN: Soft, nontender, normoactive bowel sounds. No guarding, no rebound. No masses appreciated. : Deferred EXTREMITIES: Normal range of motion, no pitting or edema. No clubbing or cyanosis. NEUROLOGICAL: Cranial nerves II through XII grossly intact. Normal speech, normal gait. PSYCH: Normal mood, normal affect. SKIN: Warm, Dry, normal turgor, no rashes. Patient has a superficial 1cm laceration to the left index finger. The laceration is U-shaped to the medial aspect of the fingernail. There is no active bleeding. Wound does not require sutures. Limitations: no limitations Course Vital Signs 01/25/19 01/25/19 13:14 15:25 Temperature 98.1 F 98.2 F Pulse Rate 82 68 Respiratory 18 16 Rate Blood Pressure 113/76 102/78 O2 Sat by Pulse 99 98 Oximetry Procedures - Laceration Laceration #1 Consent Obtained: verbal consent Indication: laceration Site: other (Left index finger, medial aspect next to male) Size (cm): 1 Description: irregular (U shaped) Depth: simple, single layer Additional Comments: No sutures were indicated. Wound was cleaned and skin adhesive was used to close the wound. Medical Decision Making - Medical Decision Making Patient is a 29-year-old female presenting with a superficial 1 cm laceration to the left index finger. 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 No active bleeding at this time. On exam patient has a superficial U shaped laceration to the medial aspect of the right index finger. The wound does not require sutures. Wound was soaked and skin adhesive was used to close the wound. Patient's tetanus was updated today. Patient is stable for discharge. Return parameters were discussed with the patient she verbalized understanding. Case discussed with Dr. Amor. Disposition Clinical Impression: Laceration of left index finger w/o foreign body w/o damage to nail Disposition: HOME SELF-CARE Condition: Stable Instructions (If sedation given, give patient instructions): Finger Laceration (ED), Skin Adhesive Care (ED) Additional Instructions: Please return to the Emergency Department if symptoms worsen or any other concerns. Is patient prescribed a controlled substance at d/c from ED?: No Referrals: None,Stated [Primary Care Provider] - 1-2 days
[2019-01-25 15:59] VITALS: BP 102/78; PULSE 68; RESP 16; TEMP 98.2
== END 2019-01-25 15:25 | disposition home or self-care (01) ==
LOC: EC 12:40
DX: S61.211A Laceration without foreign body of left index finger without damage to nail, initial encounter (principal); Z23 Encounter for immunization; W26.0XXA Contact with knife, initial encounter; Y93.89 Activity, other specified; Y92.69 Other specified industrial and construction area as the place of occurrence of the external cause; Y99.0 Civilian activity done for income or pay
CPT/HCPCS: 12001; 90471; 90715; 99282

== ENCOUNTER 2019-07-28 10:23 | Emergency (ER) | payer BC, OTHER ==
[2019-07-28] MEDS ORDERED: ACETAMINOPHEN TAB 325 MG TAB PO STA (10:56)
[2019-07-28] MEDS ORDERED: IBUPROFEN 600 MG TAB PO STA (10:56)
[2019-07-28] MEDS ORDERED: IPRATROPIUM-ALBUTEROL 3 ML NEB INHALATION STA (10:57)
--- NOTE | 2019-07-28 11:16 | XR ---
EXAMINATION TYPE: XR chest 2V DATE OF EXAM: 07/28/2019 COMPARISON: Chest x-ray March 15, 2009. HISTORY: Cough and fever. TECHNIQUE: Frontal and lateral views of the chest are obtained. FINDINGS: There is no focal air space opacity, pleural effusion, or pneumothorax seen. The cardiac silhouette size is within normal limits. The osseous structures are intact. Overlying EKG leads are seen. IMPRESSION: No suspicious acute pulmonary process.
--- NOTE | 2019-07-28 11:34 | ED ---
URI HPI - General Chief Complaint: Upper Respiratory Infection Stated Complaint: SOB Time Seen by Provider: 07/28/19 10:40 Source: patient, family Mode of arrival: ambulatory Limitations: no limitations - History of Present Illness Initial Comments: Patient is a 29-year-old female presenting to emergency Department with complaints of cough, fever, shortness of breath since yesterday. Patient states she started noticing a cough yesterday as well as body aches, headache, sore throat. Patient states throughout the day she felt worse and worse. Patient states she woke up this morning after sleeping approximately 12 hours to increase shortness of breath and chest congestion, fever. Patient states she "feels like she got hit by a train." Patient denies history of asthma or COPD. Patient states her children have been sick with upper respiratory type viruses. She denies any abdominal complaints such as nausea, vomiting, diarrhea, abdominal pain. She denies being at this time. She denies any heart disease. She denies any recent travel. She has no other complaints at this time. Upon arrival to the ER, patient was febrile to 102.4, tachycardia at 130, 96% on room air. She states she took Tylenol at approximate 7 AM this morning. - Related Data Home Medications Medication Instructions Recorded Confirmed Acetaminophen Tab [Tylenol Tab] 650 mg PO Q6H PRN 01/03/18 01/03/18 Previous Rx's Medication Instructions Recorded Albuterol Inhaler [Ventolin Hfa 1 - 2 puff INHALATION RT-Q6H PRN 7 07/28/19 Inhaler] Days #1 inhaler Oseltamivir [Tamiflu] 75 mg PO Q12HR #10 cap 07/28/19 Allergies Allergy/AdvReac Type Severity Reaction Status Date / Time No Known Allergies Allergy Verified 01/25/19 13:14 Review of Systems ROS Statement: Those systems with pertinent positive or pertinent negative responses have been documented in the HPI. ROS Other: All systems not noted in ROS Statement are negative. Past Medical History Past Medical History: No Reported History Additional Past Medical History / Comment(s): BENIGN SINUS TACHYCARDIA (DURING ) (STATES DURING ), SINSUS INFECTION- CONGESTION., 1/2 OF RIGHT KIDNEY REMOVED. History of Any Multi-Drug Resistant Organisms: None Reported Past Surgical History: No Surgical Hx Reported Additional Past Surgical History / Comment(s): Laparotomy with left oophorectomy. 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 Past Anesthesia/Blood Transfusion Reactions: No Reported Reaction Past Psychological History: No Psychological Hx Reported Smoking Status: Never smoker Past Alcohol Use History: None Reported Past Drug Use History: None Reported - Past Family History Father Family Medical History: Hypertension General Exam - General Exam Comments Initial Comments: GENERAL: Patient appears fatigued and in no acute distress. HEAD: Atraumatic, normocephalic. EYES: Pupils equal round and reactive to light, extraocular movements intact, sclera anicteric, conjunctiva are normal. ENT: TMs normal, nares patent, oropharynx clear without exudates. Moist mucous membranes. NECK: Normal range of motion, supple without lymphadenopathy or JVD. LUNGS: Decreased air movement the upper lung ivey, mild wheezes scattered throughout, no rales or rhonchi. HEART: Tachycardia rate and rhythm without murmurs, rubs or gallops. ABDOMEN: Soft, nontender, normoactive bowel sounds. No guarding, no rebound. No masses appreciated. : Deferred EXTREMITIES: Normal range of motion, no pitting or edema. No clubbing or cyanosis. NEUROLOGICAL: Normal speech, normal gait. PSYCH: Normal mood, normal affect. SKIN: Warm, Dry, normal turgor, no rashes or lesions noted. Limitations: no limitations Course Vital Signs 07/28/19 07/28/19 07/28/19 10:33 10:57 11:00 Temperature 102.4 F H Pulse Rate 139 H 126 H Respiratory 20 20 17 Rate Blood Pressure 121/91 121/83 O2 Sat by Pulse 96 99 Oximetry 07/28/19 07/28/19 07/28/19 11:25 11:30 11:37 Temperature Pulse Rate 129 H 122 H 146 H Respiratory 17 Rate Blood Pressure 120/86 O2 Sat by Pulse 99 Oximetry 07/28/19 07/28/19 07/28/19 12:00 12:22 13:59 Temperature 99.7 F H Pulse Rate 120 H 102 H Respiratory 17 16 Rate Blood Pressure 120/70 112/76 O2 Sat by Pulse 97 99 Oximetry Medical Decision Making - Medical Decision Making Patient is a 29-year-old female presenting with flulike symptoms that started yesterday. Patient was febrile and tachycardia upon arrival. Patient was given Tylenol and Motrin. Her exam is unremarkable. Patient's influenza is positive. Chest x-ray reveals no acute abnormalities. Patient remained tachycardia after medications so patient was given 1 L bolus. She is also given DuoNeb treatment. Patient reports improvement in her symptoms. Patient's vital signs improved to 99.7 temp, 102 heart rate. Patient is stable for discharge at this time. Patient will be given scripts for inhaler as well as Tamiflu. She'll continue to alternate between Tylenol and Motrin every 4 hours for fever control. We discussed keeping well hydrated. Strict return don eters were discussed with the patient she verbalized understanding. Patient is agreeable this plan of care. Case discussed with Dr. Benjamin. - Lab Data Lab Results 07/28/19 Range/Units 11:00 Influenza Type A RNA Not Detected (Not Detectd) Influenza Type B (PCR) Detected H (Not Detectd) Disposition Clinical Impression: Influenza, Dehydration Disposition: HOME SELF-CARE Condition: Stable Instructions (If sedation given, give patient instructions): Influenza (ED) Additional Instructions: Please return to the Emergency Department if symptoms worsen or any other concerns. Continue to increase fluid intake. Alternate between Motrin and Tylenol every 4 hours for fever control. Use inhaler for shortness of breath and cough. Take Tamiflu as instructed. Prescriptions: Oseltamivir [Tamiflu] 75 mg PO Q12HR #10 cap Albuterol Inhaler [Ventolin Hfa Inhaler] 1 - 2 puff INHALATION RT-Q6H PRN 7 Days #1 inhaler PRN Reason: Shortness Of Breath Is patient prescribed a controlled substance at d/c from ED?: No Referrals: None,Stated [Primary Care Provider] - 1-2 days
[2019-07-28] MEDS ORDERED: SODIUM CHLORIDE 0.9% 1,000 ML IV STA (12:18)
[2019-07-28 12:22] VITALS: TEMP 99.7
[2019-07-28 14:00] VITALS: BP 112/76; PULSE 102; RESP 16
== END 2019-07-28 13:59 | disposition home or self-care (01) ==
LOC: EC 10:23
DX: J11.1 Influenza due to unidentified influenza virus with other respiratory manifestations (principal); E86.0 Dehydration; R00.0 Tachycardia, unspecified; Z82.49 Family history of ischemic heart disease and other diseases of the circulatory system
CPT/HCPCS: 71046; 87502; 94640; 96360; 99285

== ENCOUNTER → 2020-07-22 | Outpatient (CLI) | payer OTHER ==
--- NOTE | 2020-07-23 08:03 | US ---
EXAMINATION TYPE: US transvaginal DATE OF EXAM: 07/22/2020 COMPARISON: NONE CLINICAL HISTORY: 30-year-old female N93.8 dysfunctional uterine bleeding. 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 IUD. Abnormal menses for a few months. TECHNIQUE: Transvaginal (TV). Date of LMP: 06/28/2020, FINDINGS: EXAM MEASUREMENTS: Uterus: 9.8 x 6.5 x 5.2 cm Endometrial Stripe: 1.1 cm Right Ovary: 5.0 x 2.4 x 2.9 cm 1. Uterus: Anteverted. The myometrium is slightly heterogenous. Small cervical nabothian cysts. 2. Endometrium: Heterogenous. IUD visualized. 3. Right Ovary: Hypoechoic lesion within the right ovary with an internal septation and posterior th rough transmission measuring 2.7 x 2.5 x 2.4 cm 4. Left Ovary: Surgically absent 5. Bilateral Adnexa: free fluid seen adjacent to right ovary 6. Posterior cul-de-sac: no free fluid IMPRESSION: 1. Heterogeneous endometrium with the endometrial stripe slightly thickened at 1.1 cm. The IUD remain s appropriately situated along the uterine cavity. 2. A 2.7 cm hypoechoic lesion within the right ovary, suspected hemorrhagic cyst. Follow-up in 6-8 we eks to ensure involution. Small amount of adjacent right adnexal free fluid. 3. Left ovary surgically absent.
== END | disposition home or self-care (01) ==
LOC: RADUSWWP 16:46
PROVIDERS: ATTEND Obstetrics & Gynecology
DX: N83.8 Other noninflammatory disorders of ovary, fallopian tube and broad ligament (principal); R93.89 Abnormal findings on diagnostic imaging of other specified body structures; Z97.5 Presence of (intrauterine) contraceptive device; Z90.721 Acquired absence of ovaries, unilateral
CPT/HCPCS: 76830

== ENCOUNTER 2022-08-08 06:52 | Emergency (ER) | payer OTHER ==
[2022-08-08] MEDS ORDERED: methylPREDNISolone SOD SUCCI 125 MG/2 ML VIAL IV STA (07:06)
[2022-08-08] MEDS ORDERED: ORPHENADRINE 30 MG/ML 2 ML VIAL IVP STA (07:06)
[2022-08-08] MEDS ORDERED: KETOROLAC 15 MG/ML 1 ML VIAL IVP STA (07:06)
--- NOTE | 2022-08-08 07:19 | ED ---
Neck Injury/Pain HPI - General Chief Complaint: Neck Pain/Injury Stated Complaint: Neck Pain, Right arm numbness Time Seen by Provider: 08/08/22 07:01 Source: patient, RN notes reviewed Mode of arrival: ambulatory Limitations: no limitations - History of Present Illness Initial Comments: This is a 32-year-old female who presents to the emergency department for right- sided neck pain and right arm pain. Patient states that she woke up with pain in the right side of the neck 2 days ago. Denies any known injuries. She is now unable to turn her head and is experiencing numbness in the right arm. She is unable to get symptoms to improve on their own with ibuprofen and Tylenol. She has also tried using a heating pack. Denies any history of similar symptoms in the past. Denies any fevers, chills, sore throat, cough, dyspnea, chest pain, palpitations, abdominal pain, nausea, vomiting, diarrhea, back pain, or headaches. MD Complaint: neck pain Onset/Timin -: days(s) - Related Data Home Medications Medication Instructions Recorded Confirmed Acetaminophen Tab [Tylenol Tab] 650 mg PO Q6H PRN 01/03/18 01/03/18 Previous Rx's Medication Instructions Recorded Albuterol Inhaler [Ventolin Hfa 1 - 2 puff INHALATION RT-Q6H PRN 7 07/28/19 Inhaler] Days #1 inhaler Oseltamivir [Tamiflu] 75 mg PO Q12HR #10 cap 07/28/19 Baclofen 10 mg PO TID PRN #15 tab 08/08/22 predniSONE 50 mg PO DAILY 5 Days #5 tablet 08/08/22 Allergies Allergy/AdvReac Type Severity Reaction Status Date / Time No Known Allergies Allergy Verified 01/25/19 13:14 Review of Systems ROS Statement: Those systems with pertinent positive or pertinent negative responses have been documented in the HPI. ROS Other: All systems not noted in ROS Statement are negative. Past Medical History Past Medical History: No Reported History Additional Past Medical History / Comment(s): BENIGN SINUS TACHYCARDIA (DURING ) (STATES DURING ), SINSUS INFECTION- CONGESTION., 1/2 OF RIGHT KIDNEY REMOVED. History of Any Multi-Drug Resistant Organisms: None Reported Past Surgical History: No Surgical Hx Reported Additional Past Surgical History / Comment(s): Laparotomy with left oophorectomy. 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 Past Anesthesia/Blood Transfusion Reactions: No Reported Reaction Past Psychological History: No Psychological Hx Reported Smoking Status: Never smoker Past Alcohol Use History: None Reported Past Drug Use History: None Reported - Past Family History Father Family Medical History: Hypertension General Exam Limitations: no limitations General appearance: alert, in distress Head exam: Present: atraumatic, normocephalic, normal inspection Neck exam: Present: normal inspection, other (Tenderness to palpation over the right side of the neck. Limited range of motion secondary to pain.). Absent: lymphadenopathy, thyromegaly Respiratory exam: Present: normal lung sounds bilaterally. Absent: respiratory distress, wheezes, rales, rhonchi, stridor Cardiovascular Exam: Present: regular rate, normal rhythm, normal heart sounds. Absent: systolic murmur, diastolic murmur, rubs, gallop, clicks Extremities exam: Present: other (Range of motion of the right upper extremity induces pain in the right side of the neck. 2+ radial pulses. Capillary refill less than 1 second.) Neurological exam: Present: alert, oriented X3, CN II-XII intact Psychiatric exam: Present: normal affect, normal mood Skin exam: Present: warm, dry, intact, normal color. Absent: rash Course Vital Signs 08/08/22 08/08/22 06:55 09:11 Temperature 97.8 F 97.9 F Pulse Rate 95 82 Respiratory 18 19 Rate Blood Pressure 131/98 115/78 O2 Sat by Pulse 98 100 Oximetry Medical Decision Making - Medical Decision Making This is a 32-year-old female who presents to the emergency department for neck pain. Was pt. sent in by a medical professional or institution? @ -No Did you speak to anyone other than the patient for history? @ -No Did you review nursing and triage notes? @ -Yes, and I agree, it is accurate with regards to the patient's symptoms. Were old charts reviewed? @ -No Differential Diagnosis? @ -Differential Neck Pain: Fracture, dislocation, disc herniation, cervical radiculopathy, torticollis, strain, this is not meant to be an all-inclusive list. X-rays interpreted by me (1pt min.)? @ -X-ray of the cervical spine obtained. My interpretation identifies no acute fractures or foraminal narrowing. What testing was considered but not performed? (CT, X-rays, U/S, labs)? Why? @ -None What meds were considered but not given? Why? @ -None Did you discuss the management of the patient with other professionals? @ -No Did you reconcile home meds? @ -No Was smoking cessation discussed for >3mins.? @ -No Was critical care preformed (if so, how long)? @ -No Were there social determinants of health that impacted care today? How? (Homelessness, low income, unemployed, alcoholism, drug addiction, transportation, low edu. Level, literacy, decrease access to med. care, senior care, rehab)? @ -No Was there de-escalation of care discussed even if they declined? (Discuss DNR or withdrawal of care, Hospice)? @ -No What co-morbidities impacted this encounter? (DM, HTN, Smoking, COPD, CAD, Cancer, CVA, Hep., AIDS, mental health diagnosis, sleep apnea, morbid obesity)? @ -None Was patient admitted / discharged? @ -Discharged. Discussed with the patient that her physical examination and symptoms are most consistent with a torticollis or cervical strain. X-ray of the cervical spine revealed no notable findings other than a possible grade 1 anterolisthesis. We first tried Norflex with Toradol and Solu-Medrol, however her symptoms persisted. We then tried Valium with Morphine. Her pain did start to slowly improve and was more tolerable and she had increased range of motion of her neck. Prescriptions for prednisone and baclofen provided with dosing instructions reviewed. Advised that the baclofen may be sedating and she should take it at night until she knows how it effects her. After finishing the prednisone, she can start taking anti-inflammatories such as ibuprofen, however she is advised to avoid taking them together. Also advised applying heat to her neck. She'll follow up with her primary care provider next week for reevaluation of symptoms and discuss an MRI if symptoms persist. Undiagnosed new problem with uncertain prognosis? @ -None Drug Therapy requiring intensive monitoring for toxicity (Heparin, Nitro, Insulin, Cardizem)? @ -None Were any procedures done? @ -None Diagnosis/symptom? @ -Cervical strain Acute, or Chronic, or Acute on Chronic? @ -Acute Uncomplicated (without systemic symptoms) or Complicated (systemic symptoms)? @ -Uncomplicated Side effects of treatment? @ -None Exacerbation, Progression, or Severe Exacerbation] @ -Not applicable Poses a threat to life or bodily function? @ -No Return precautions reviewed in depth, the patient is instructed to return to the emergency department with any new, worsening, or concerning symptoms. Patient verbalized understanding. This case was discussed in detail with the attending ED physician, Dr. Amor. Presentation, findings, and treatment plan discussed in detail as well. - Radiology Data Radiology results: report reviewed, image reviewed Disposition Clinical Impression: Strain of neck muscle Disposition: HOME SELF-CARE Instructions (If sedation given, give patient instructions): Cervical Strain (ED), Spasmodic Torticollis (ED) Additional Instructions: Return to the emergency department with any new, worsening, or concerning symptoms. Take the prednisone daily for 5 days, with your first dose beginning tomorrow. You can take the Baclofen up to 3 times daily as needed for stiffness and spasms in the neck. Be aware that this may be sedating and you should take it at night until you know how it affects you. After finishing the course of prednisone, you can start taking anti-inflammatories such as ibuprofen. Follow up with your primary care provider in 1-2 days. If the pain does not improve, you may need to discuss having an MRI with your primary care provider. Prescriptions: Baclofen 10 mg PO TID PRN #15 tab PRN Reason: Pain predniSONE 50 mg PO DAILY 5 Days #5 tablet Is patient prescribed a controlled substance at d/c from ED?: No Referrals: Taiwo Hernandez MD [Primary Care Provider] - 1-2 days
[2022-08-08] MEDS ORDERED: MORPHINE SULFATE 2 MG/ML SYRINGE IVP STA (07:47)
[2022-08-08 09:11] VITALS: BP 115/78; PULSE 82; RESP 19; TEMP 97.9
[2022-08-08] MEDS ORDERED: ACET/COD 300 MG/30 MG STARTER PACK 6 TAB BTL PO STA (09:55)
--- NOTE | 2022-08-08 10:05 | XR ---
EXAMINATION TYPE: XR cervical spine comp DATE OF EXAM: 08/08/2022 COMPARISON: None HISTORY: 32 year-old female right-sided neck pain TECHNIQUE: 5 views FINDINGS: No predental space widening or prevertebral soft tissue swelling. There is a trace grade 1 anterolisthesis at C7-T1. This may in part be due to some ligamentous laxity or could be due to some mild facet arthropathy. No significant bony neural foraminal narrowing seen on either side. Normal odontoid view. IMPRESSION: Trace grade 1 anterolisthesis at C7-T1 may be due to some ligamentous laxity or could be from mild fa cet arthropathy. Otherwise, no acute fracture, prevertebral soft tissue swelling, or bony neuroforami nal narrowing on either side.
== END 2022-08-08 10:23 | disposition home or self-care (01) ==
LOC: EC 06:52
DX: S16.1XXA Strain of muscle, fascia and tendon at neck level, initial encounter (principal); X58.XXXA Exposure to other specified factors, initial encounter
CPT/HCPCS: 72050; 99283; 96374; 96375 ×4; J2360; J2930; J3360; J2270; J1885

== ENCOUNTER 2023-12-20 12:26 | Emergency (ER) | payer OTHER ==
[2023-12-20 12:33] VITALS: TEMP 97.9
--- NOTE | 2023-12-20 12:45 | ED ---
General Adult HPI - General Chief complaint: Abdominal Pain Stated complaint: Abd pain Time Seen by Provider: 12/20/23 12:35 Source: patient, RN notes reviewed Mode of arrival: ambulatory Limitations: no limitations - History of Present Illness Initial comments: Patient is a 33-year-old female present to the emergency department with concerns with abdominal discomfort. Onset of symptoms was around 8 this morning while at work. Discomfort has increased onset time. Discomfort has been steady. No change or discomfort with movement. Patient denies possible and states she is on her menses. Patient checked her urine at work and there was blood in her urine. No fever. Patient has nausea and did vomit once. No constipation or diarrhea. Discomfort is right lower quadrant and does radiate to the back - Related Data Previous Rx's Medication Instructions Recorded Sulfamethox-Tmp 800-160Mg [Bactrim 1 each PO Q12HR #20 tab 12/20/23 DS 800-160 mg] Allergies Allergy/AdvReac Type Severity Reaction Status Date / Time No Known Allergies Allergy Verified 12/20/23 14:40 Review of Systems ROS Statement: Those systems with pertinent positive or pertinent negative responses have been documented in the HPI. ROS Other: All systems not noted in ROS Statement are negative. Constitutional: Denies: fever Eyes: Denies: eye pain ENT: Denies: ear pain Respiratory: Denies: cough Cardiovascular: Denies: chest pain Endocrine: Denies: fatigue Gastrointestinal: Reports: as per HPI, abdominal pain, nausea, vomiting Skin: Denies: rash Past Medical History Past Medical History: No Reported History Additional Past Medical History / Comment(s): BENIGN SINUS TACHYCARDIA (DURING ) (STATES DURING ), SINSUS INFECTION- CONGESTION., 1/2 OF RIGHT KIDNEY REMOVED. History of Any Multi-Drug Resistant Organisms: None Reported Past Surgical History: No Surgical Hx Reported Additional Past Surgical History / Comment(s): Laparotomy with left oophorectomy. 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 Past Anesthesia/Blood Transfusion Reactions: No Reported Reaction Past Psychological History: No Psychological Hx Reported Smoking Status: Never smoker Past Alcohol Use History: None Reported Past Drug Use History: None Reported - Past Family History Father Family Medical History: Hypertension General Exam Limitations: no limitations General appearance: alert, in no apparent distress Head exam: Present: normocephalic Eye exam: Present: normal appearance Neck exam: Present: normal inspection Respiratory exam: Present: normal lung sounds bilaterally Cardiovascular Exam: Present: regular rate, normal rhythm Expanded Peripheral pulses: 2+: Dorsalis Pedis (R), Dorsalis Pedis (L) GI/Abdominal exam: Present: soft, tenderness (Diabetes but no evidence of mild to moderate right flank and right lower quadrant pain.), normal bowel sounds. Absent: distended, guarding, rebound, rigid, pulsatile mass Extremities exam: Present: normal inspection Back exam: Present: CVA tenderness (R) (And just inferior to this) Neurological exam: Present: alert Psychiatric exam: Present: normal affect, normal mood Skin exam: Present: normal color Course Vital Signs 12/20/23 12/20/23 12:31 14:03 Temperature 97.9 F Pulse Rate 93 90 Respiratory 16 18 Rate Blood Pressure 124/83 113/75 O2 Sat by Pulse 99 Oximetry Medical Decision Making - Medical Decision Making Was pt. sent in by a medical professional or institution (, PA, EPIC WILLOW ANALYST, urgent care, hospital, or [facility]...) When possible be specific @ -Patient was sent from primary care physician office Did you speak to anyone other than the patient for history (EMS, parent, family, police, friend...)? What history was obtained from this source @ -No Did you review nursing and triage notes (agree or disagree)? Why? @ -I reviewed and agree with nursing and triage notes Were old charts reviewed (outside hosp., previous admission, EMS record, old EKG, old radiological studies, urgent care reports/EKG's, [facility] records)? Report findings @ -No old charts were reviewed Differential Diagnosis (chest pain, altered mental status, abdominal pain women, abdominal pain men, vaginal bleeding, weakness, fever, dyspnea, syncope, headache, dizziness, GI bleed, back pain, seizure, CVA, palpatations, mental h ealth, musculoskeletal)? @ -Differential Abdominal Pain Women: Appendicitis, Cholecystitis, diverticulosis, ischemic bowel, pancreatitis, hepatitis, UTI, gastroenteritis, AAA, incarcerated hernia, bowel obstruction, constipation, inflammatory bowel, hepatitis, peptic ulcer disease, splenic infarction, perforated viscus, vulvitis, ovarian torsion, PID, kidney stone, placenta abruption, this is not meant to be an all-inclusive list EKG interpreted by me (3pts min.). @ -As above X-rays interpreted by me (1pt min.). @ -None done CT interpreted by me (1pt min.). @ -CT scan abdomen pelvis without acute abnormality U/S interpreted by me (1pt. min.). @ -None done What testing was considered but not performed or refused? (CT, X-rays, U/S, labs)? Why? @ -None What meds were considered but not given or refused? Why? @ -None Did you discuss the management of the patient with other professionals (professionals i.e. DrDina, PA, EPIC WILLOW ANALYST, lab, RT, psych nurse, home health care social worker, services manager, teacher, investment officer, rn case mgr)? Give summary @ -No Was smoking cessation discussed for >3mins.? @ -No Was critical care preformed (if so, how long)? @ -No Were there social determinants of health that impacted care today? How? (Homelessness, low income, unemployed, alcoholism, drug addiction, transportati on, low edu. Level, literacy, decrease access to med. care, skilled nursing, rehab)? @ -No Was there de-escalation of care discussed even if they declined (Discuss DNR or withdrawal of care, Hospice)? DNR status @ -No What co-morbidities impacted this encounter? (DM, HTN, Smoking, COPD, CAD, Cancer, CVA, ARF, Chemo, Hep., AIDS, mental health diagnosis, sleep apnea, morbid obesity)? @ -None Was patient admitted / discharged? Hospital course, mention meds given and route, prescriptions, significant lab abnormalities, going to OR and other pertinent info. @ -Patient presents with right-sided abdominal discomfort. Abnormal urinalysis. CT scan without acute abnormality. Patient reevaluated and feeling much better. Patient will be discharged with antibiotics. Patient is updated and agreeable Undiagnosed new problem with uncertain prognosis? @ -No Drug Therapy requiring intensive monitoring for toxicity (Heparin, Nitro, Insulin, Cardizem)? @ -No Were any procedures done? @ -No Diagnosis/symptom? @ -Abdominal pain, urinary tract infect Acute, or Chronic, or Acute on Chronic? @ -Acute, acute Uncomplicated (without systemic symptoms) or Complicated (systemic symptoms)? @ -Complicated with delay secondary to difficulty with lab performing hCG testing Side effects of treatment? @ -No Exacerbation, Progression, or Severe Exacerbation? @ -No Poses a threat to life or bodily function? How? (Chest pain, [place], [place], pneumonia, PE, COPD, DKA, ARF, appy, cholecystitis, CVA, Diverticulitis, Homicidal, Suicidal, threat to staff... and all critical care pts) @ -For kidney infection or worsening - Lab Data Result diagrams: 12/20/23 12:51 12/20/23 12:51 Lab Results 12/20/23 12/20/23 12/20/23 Range/Units 12:51 12:51 12:51 WBC 5.0 (3.8-10.6) k/uL RBC 4.35 (3.80-5.40) m/uL Hgb 11.4 (11.4-16.0) gm/dL Hct 36.0 (34.0-46.0) % MCV 82.7 (80.0-100.0) fL MCH 26.2 (25.0-35.0) pg MCHC 31.7 (31.0-37.0) g/dL RDW 15.0 (11.5-15.5) % Plt Count 301 (150-450) k/uL MPV 7.4 Neutrophils % 49 % Lymphocytes % 33 % Monocytes % 7 % Eosinophils % 9 % Basophils % 1 % Neutrophils # 2.5 (1.3-7.7) k/uL Lymphocytes # 1.7 (1.0-4.8) k/uL Monocytes # 0.4 (0-1.0) k/uL Eosinophils # 0.5 (0-0.7) k/uL Basophils # 0.0 (0-0.2) k/uL Hypochromasia Slight PT 10.8 (10.0-12.5) sec INR 1.0 (<1.2) APTT 24.4 (22.0-30.0) sec Sodium (137-145) mmol/L Potassium (3.5-5.1) mmol/L Chloride (98-107) mmol/L Carbon Dioxide (22-30) mmol/L Anion Gap mmol/L BUN (7-17) mg/dL Creatinine (0.52-1.04) mg/dL Est GFR (CKD-EPI)AfAm (>60 ml/min/1.73 sqM) Est GFR (CKD-EPI)NonAf (>60 ml/min/1.73 sqM) Glucose (74-99) mg/dL Calcium (8.4-10.2) mg/dL Total Bilirubin (0.2-1.3) mg/dL AST (14-36) U/L ALT (4-34) U/L Alkaline Phosphatase (38-126) U/L Total Protein (6.3-8.2) g/dL Albumin (3.5-5.0) g/dL Amylase (30-110) U/L Lipase (23-300) U/L HCG, Quant mIU/mL Urine Color Red Urine Appearance Cloudy H (Clear) Urine RBC >182 H (0-5) /hpf Urine WBC >182 H (0-5) /hpf Urine WBC Clumps Many H (None) /hpf Ur Squamous Epith Cells 10 H (0-4) /hpf Urine Mucus Moderate H (None) /hpf Urine HCG, Qual (Not Detectd) 12/20/23 12/20/23 Range/Units 12:51 15:53 WBC (3.8-10.6) k/uL RBC (3.80-5.40) m/uL Hgb (11.4-16.0) gm/dL Hct (34.0-46.0) % MCV (80.0-100.0) fL MCH (25.0-35.0) pg MCHC (31.0-37.0) g/dL RDW (11.5-15.5) % Plt Count (150-450) k/uL MPV Neutrophils % % Lymphocytes % % Monocytes % % Eosinophils % % Basophils % % Neutrophils # (1.3-7.7) k/uL Lymphocytes # (1.0-4.8) k/uL Monocytes # (0-1.0) k/uL Eosinophils # (0-0.7) k/uL Basophils # (0-0.2) k/uL Hypochromasia PT (10.0-12.5) sec INR (<1.2) APTT (22.0-30.0) sec Sodium 138 (137-145) mmol/L Potassium 3.6 (3.5-5.1) mmol/L Chloride 108 H (98-107) mmol/L Carbon Dioxide 21 L (22-30) mmol/L Anion Gap 9 mmol/L BUN 10 (7-17) mg/dL Creatinine 0.63 (0.52-1.04) mg/dL Est GFR (CKD-EPI)AfAm >90 (>60 ml/min/1.73 sqM) Est GFR (CKD-EPI)NonAf >90 (>60 ml/min/1.73 sqM) Glucose 87 (74-99) mg/dL Calcium 9.0 (8.4-10.2) mg/dL Total Bilirubin 0.7 (0.2-1.3) mg/dL AST 21 (14-36) U/L ALT 11 (4-34) U/L Alkaline Phosphatase 42 (38-126) U/L Total Protein 6.7 (6.3-8.2) g/dL Albumin 4.3 (3.5-5.0) g/dL Amylase 64 (30-110) U/L Lipase 113 (23-300) U/L HCG, Quant <2.4 mIU/mL Urine Color Urine Appearance (Clear) Urine RBC (0-5) /hpf Urine WBC (0-5) /hpf Urine WBC Clumps (None) /hpf Ur Squamous Epith Cells (0-4) /hpf Urine Mucus (None) /hpf Urine HCG, Qual Not Detected (Not Detectd) Disposition Clinical Impression: Abdominal pain, Urinary tract infection Disposition: HOME SELF-CARE Condition: Stable Instructions (If sedation given, give patient instructions): Abdominal Pain (ED), Urinary Tract Infection in Women (ED) Additional Instructions: Prescription sent to pharmacy. Please do follow-up with your primary care physician in the next 1 or 2 days for recheck. Return for fever, vomiting, increased pain, worsening or changing symptoms or any other concerns. Prescriptions: Sulfamethox-Tmp 800-160Mg [Bactrim DS 800-160 mg] 1 each PO Q12HR #20 tab Is patient prescribed a controlled substance at d/c from ED?: No Referrals: Taiwo Hernandez [Primary Care Provider] - 1-2 days Time of Disposition: 18:28
[2023-12-20] MEDS: SODIUM CHLORIDE 0.9% 1,000 ML IV STA (12:56)
[2023-12-20] MEDS: ONDANSETRON 4 MG/2 ML VIAL IVP STA (12:56)
[2023-12-20] MEDS: FAMOTIDINE 20 MG/2 ML VIAL IV STA (12:57)
[2023-12-20] MEDS: KETOROLAC 15 MG/ML 1 ML VIAL IVP STA (12:58)
[2023-12-20 13:08] LABS: Basophils % (A) 1 %; Eosinophils # (A) 0.5 k/uL (0-0.7); Eosinophils % (A) 9 %; HGB 11.4 gm/dL (11.4-16.0); Hypochromasia Slight; Lymphocytes # (A) 1.7 k/uL (1.0-4.8); Lymphocytes % (A) 33 %; MCH 26.2 pg (25.0-35.0); MCHC 31.7 g/dL (31.0-37.0); MCV 82.7 fL (80.0-100.0); Mean Platelet Volume 7.4; Monocytes # (A) 0.4 k/uL (0-1.0); Monocytes % (A) 7 %; Neutrophils # (A) 2.5 k/uL (1.3-7.7); Neutrophils % (A) 49 %; Platelet Count 301 k/uL (150-450); RBC 4.35 m/uL (3.80-5.40)
[2023-12-20 13:16] LABS: Appearance,Urine Cloudy (Clear); Color,Urine Red; Mucus,Urine Moderate /hpf; RBC,Urine >182 /hpf (0-5); Squamous Epithelial Cell,Urine 10 /hpf (0-4); WBC,Urine >182 /hpf (0-5)
[2023-12-20 13:19] LABS: Partial Thromboplastin Time 24.4 sec (22.0-30.0); Prothrombin Time 10.8 sec (10.0-12.5)
[2023-12-20 14:05] VITALS: PULSE 90; RESP 18
[2023-12-20 14:52] LABS: ALT 11 U/L (4-34); AST 21 U/L (14-36); African American GFR (CKD) >90 (>60 ml/min/1.73 sqM); Albumin 4.3 g/dL (3.5-5.0); Alkaline Phosphatase 42 U/L (38-126); Amylase 64 U/L (30-110); Anion Gap 9 mmol/L; Blood Urea Nitrogen 10 mg/dL (7-17); Carbon Dioxide 21 mmol/L (22-30); Chloride 108 mmol/L (98-107); Glucose 87 mg/dL (74-99); Lipase 113 U/L (23-300); Non-African American GFR(CKD) >90 (>60 ml/min/1.73 sqM); Potassium 3.6 mmol/L (3.5-5.1); Sodium 138 mmol/L (137-145); Total Protein 6.7 g/dL (6.3-8.2)
[2023-12-20] MEDS: HYDROmorphone 1 MG/ML 1 ML SYRINGE IVP STA (15:24)
[2023-12-20 15:43] LABS: Total Bilirubin 0.7 mg/dL (0.2-1.3)
[2023-12-20 16:01] LABS: HCG,Quantitative Serum <2.4 mIU/mL
--- NOTE | 2023-12-20 17:32 | CT ---
EXAMINATION TYPE: CT abdomen pelvis w con CT DLP: 663.7 mGycm, Automated exposure control for dose reduction was used. DATE OF EXAM: 12/20/2023 4:45 PM COMPARISON: CT abdomen pelvis most recent from CLINICAL INDICATION:Female, 33 years old with history of abdominal pain; RLQ ABDOMINAL PAIN THAT WRAP S AROUND THE BACK TECHNIQUE: Axial CT abdomen pelvis w con;Sagittal and coronal reformats were created on a separate w orkstation. Contrast used:100 ml mL of Isovue 370 with IV Contrast, (none if empty) Oral contrast used: without Oral Contrast (none if empty) FINDINGS: LOWER CHEST: Unremarkable ABDOMEN LIVER: Unremarkable GALLBLADDER AND BILE DUCTS: Unremarkable. PANCREAS: Unremarkable. SPLEEN: Unremarkable. ADRENAL GLANDS: Unremarkable. KIDNEYS AND URETERS: No evidence of hydronephrosis or renal calculus. The ureters are unremarkable. PELVIS BLADDER: Unremarkable REPRODUCTIVE: Unremarkable. ABDOMEN & PELVIS STOMACH AND BOWEL: The appendix is not definitely identified. No inflammatory process is identified i n the right lower quadrant or elsewhere in the abdomen No evidence of bowel obstruction. PERITONEUM/RETROPERITONEUM: No evidence of pneumoperitoneum or free fluid. VASCULATURE: No evidence of aortic aneurysm. MUSCULOSKELETAL: No acute osseous abnormalities LYMPH NODES: No gross evidence for lymphadenopathy. SOFT TISSUE/ABDOMINAL WALL: Unremarkable IMPRESSION: 1. An acute process is not identified. No CT findings are appreciated that would explain patient's s ymptoms.
[2023-12-20] MEDS: ACET/COD 300 MG/30 MG STARTER PACK 6 TAB BTL PO STA (18:57)
[2023-12-20] MEDS: cefTRIAXone IN SWFI 1,000 MG/10 ML SYRINGE IVP STA (18:58)
[2023-12-20 19:00] VITALS: BP 110/70
== END 2023-12-20 19:03 | disposition home or self-care (01) ==
LOC: EC 12:26
DX: N39.0 Urinary tract infection, site not specified (principal)
CPT/HCPCS: 36415; 80053; 82150; 83690; 85025; 85610; 85730; 81001; 81025; 84702; 87086; 74177; 99284; 96374; 96375 ×4; 96361 ×6; J2405; J0696; J3490; J1170; J1885; Q9967

== ENCOUNTER 2024-06-03 09:44 | Emergency (ER) | payer OTHER ==
[2024-06-03 10:03] VITALS: TEMP 97.8
--- NOTE | 2024-06-03 10:41 | ED ---
General Adult HPI - General Chief complaint: Vaginal Bleeding Stated complaint: 7wks preg bleeding Time Seen by Provider: 06/03/24 10:00 Source: patient, RN notes reviewed Mode of arrival: ambulatory Limitations: no limitations - History of Present Illness Initial comments: 34-year-old female presents emergency department with chief complaint of vaginal bleeding early . Patient states she is 7 weeks 5 days she is G3, scheduled see Dr. Dorsey She has had no prior ultrasound. Patient states that she has minimal discomfort. She states that she has had light spotting this morning and last night. She denies any nausea vomit diarrhea constipation denies any fever or chills. Patient offers no associated symptoms. - Related Data Previous Rx's Medication Instructions Recorded Sulfamethox-Tmp 800-160Mg [Bactrim 1 each PO Q12HR #20 tab 12/20/23 DS 800-160 mg] Allergies Allergy/AdvReac Type Severity Reaction Status Date / Time No Known Allergies Allergy Verified 06/03/24 09:58 Review of Systems ROS Statement: Those systems with pertinent positive or pertinent negative responses have been documented in the HPI. ROS Other: All systems not noted in ROS Statement are negative. Past Medical History Past Medical History: No Reported History Additional Past Medical History / Comment(s): BENIGN SINUS TACHYCARDIA (DURING ) (STATES DURING ), SINSUS INFECTION- CONGESTION., 1/2 OF RIGHT KIDNEY REMOVED. History of Any Multi-Drug Resistant Organisms: None Reported Past Surgical History: No Surgical Hx Reported Additional Past Surgical History / Comment(s): Laparotomy with left oophorectomy. 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 Past Anesthesia/Blood Transfusion Reactions: No Reported Reaction Past Psychological History: No Psychological Hx Reported Smoking Status: Never smoker Past Alcohol Use History: None Reported Past Drug Use History: None Reported - Past Family History Father Family Medical History: Hypertension General Exam Limitations: no limitations General appearance: alert, in no apparent distress Head exam: Present: atraumatic, normocephalic, normal inspection Eye exam: Present: normal appearance, PERRL, EOMI. Absent: scleral icterus, conjunctival injection, periorbital swelling ENT exam: Present: normal exam, normal oropharynx, mucous membranes moist Neck exam: Present: normal inspection, full ROM. Absent: tenderness, meningis mus, lymphadenopathy Respiratory exam: Present: normal lung sounds bilaterally. Absent: respiratory distress, wheezes, rales, rhonchi, stridor Cardiovascular Exam: Present: regular rate, normal rhythm, normal heart sounds. Absent: systolic murmur, diastolic murmur, rubs, gallop, clicks GI/Abdominal exam: Present: soft, normal bowel sounds. Absent: distended, tenderness, guarding, rebound, rigid Back exam: Absent: CVA tenderness (R), CVA tenderness (L) Skin exam: Present: warm, dry, intact, normal color. Absent: rash Course Vital Signs 06/03/24 06/03/24 09:58 12:14 Temperature 97.8 F Pulse Rate 79 74 Respiratory 18 16 Rate Blood Pressure 109/78 100/67 O2 Sat by Pulse 100 100 Oximetry Medical Decision Making - Medical Decision Making Was pt. sent in by a medical professional or institution (Dr. PA, ANIMAL SCIENCE INSTRUCTOR, urgent care, hospital, or half-way...) When possible be specific @ -No Did you speak to anyone other than the patient for history (EMS, parent, family, police, friend...)? What history was obtained from this source @ -No Did you review nursing and triage notes (agree or disagree)? Why? @ -I reviewed and agree with nursing and triage notes Were old charts reviewed (outside hosp., previous admission, EMS record, old EKG, old radiological studies, urgent care reports/EKG's, half-way records)? Report findings @ -No old charts were reviewed Differential Diagnosis (chest pain, altered mental status, abdominal pain women, abdominal pain men, vaginal bleeding, weakness, fever, dyspnea, syncope, headache, dizziness, GI bleed, back pain, seizure, CVA, palpatations, mental health, musculoskeletal)? @ -Differential Vaginal Bleeding: Spontaneous , threatened , molar , ectopic , bloody show, incompetent cervix, abruptioplacenta, placenta previa, uterine rupture, dysfunctional uterine bleeding, hemorrhage, uterine fibroids, this is not meant to be an all-inclusive list. EKG interpreted by me (3pts min.). @ -None X-rays interpreted by me (1pt min.). @ -None done CT interpreted by me (1pt min.). @ -None done U/S interpreted by me (1pt. min.). @ -Ultrasound transvaginal showing intrauterine 7 weeks and 1 day heart rate within normal limits subchronic hemorrhage What testing was considered but not performed or refused? (CT, X-rays, U/S, labs)? Why? @ -None What meds were considered but not given or refused? Why? @ -None Did you discuss the management of the patient with other professionals (professionals i.e. , PA, ANIMAL SCIENCE INSTRUCTOR, lab, RT, psych nurse, social and human services assistant, tissue recovery technician, teacher, tactical deception plans officer, caser up)? Give summary @ -No Was smoking cessation discussed for >3mins.? @ -No Was critical care preformed (if so, how long)? @ -No Were there social determinants of health that impacted care today? How? (Homelessness, low income, unemployed, alcoholism, drug addiction, transportation, low edu. Level, literacy, decrease access to med. care, fdc, rehab)? @ -No Was there de-escalation of care discussed even if they declined (Discuss DNR or withdrawal of care, Hospice)? DNR status @ -No What co-morbidities impacted this encounter? (DM, HTN, Smoking, COPD, CAD, Cancer, CVA, ARF, Chemo, Hep., AIDS, mental health diagnosis, sleep apnea, morbid obesity)? @ -None Was patient admitted / discharged? Hospital course, mention meds given and route, prescriptions, significant lab abnormalities, going to OR and other pertinent info. @Discharge patient has O+ blood type. Patient has evidence of subchronic hemorrhage. 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 Undiagnosed new problem with uncertain prognosis? @ -No Drug Therapy requiring intensive monitoring for toxicity (Heparin, Nitro, Insulin, Cardizem)? @ -No Were any procedures done? @ -No Diagnosis/symptom? @ -Subchorionic hemorrhage first trimester Acute, or Chronic, or Acute on Chronic? @ -Acute Uncomplicated (without systemic symptoms) or Complicated (systemic symptoms)? @ -Uncomplicated Side effects of treatment? @ -No Exacerbation, Progression, or Severe Exacerbation? @ -No Poses a threat to life or bodily function? How? (Chest pain, [place], [place], pneumonia, PE, COPD, DKA, ARF, appy, cholecystitis, CVA, Diverticulitis, Homicidal, Suicidal, threat to staff... and all critical care pts) @ -No - Lab Data Result diagrams: 06/03/24 10:24 06/03/24 10:24 Lab Results 06/03/24 06/03/24 06/03/24 Range/Units 10:24 10:24 10:24 WBC 6.2 (3.8-10.6) k/uL RBC 4.08 (3.80-5.40) m/uL Hgb 10.4 L (11.4-16.0) gm/dL Hct 32.5 L (34.0-46.0) % MCV 79.7 L (80.0-100.0) fL MCH 25.5 (25.0-35.0) pg MCHC 32.0 (31.0-37.0) g/dL RDW 14.4 (11.5-15.5) % Plt Count 220 (150-450) k/uL MPV 7.8 Neutrophils % 63 % Lymphocytes % 24 % Monocytes % 6 % Eosinophils % 6 % Basophils % 1 % Neutrophils # 3.9 (1.3-7.7) k/uL Lymphocytes # 1.5 (1.0-4.8) k/uL Monocytes # 0.4 (0-1.0) k/uL Eosinophils # 0.4 (0-0.7) k/uL Basophils # 0.0 (0-0.2) k/uL Hypochromasia Slight Sodium 135 L (137-145) mmol/L Potassium 4.3 (3.5-5.1) mmol/L Chloride 104 (98-107) mmol/L Carbon Dioxide 23 (22-30) mmol/L Anion Gap 8 mmol/L BUN 10 (7-17) mg/dL Creatinine 0.63 (0.52-1.04) mg/dL Est GFR (CKD-EPI)AfAm >90 (>60 ml/min/1.73 sqM) Est GFR (CKD-EPI)NonAf >90 (>60 ml/min/1.73 sqM) Glucose 86 (74-99) mg/dL Calcium 9.0 (8.4-10.2) mg/dL HCG, Quant 275691.0 mIU/mL Urine Color Yellow Urine Appearance Cloudy H (Clear) Urine pH 6.0 (5.0-8.0) Ur Specific [place] 1.022 (1.001-1.035) Urine Protein Negative (Negative) Urine Glucose (UA) Negative (Negative) Urine Ketones Negative (Negative) Urine Blood Trace H (Negative) Urine Nitrite Negative (Negative) Urine Bilirubin Negative (Negative) Urine Urobilinogen <2.0 (<2.0) mg/dL Ur Leukocyte Esterase Trace H (Negative) Urine RBC 1 (0-5) /hpf Urine WBC 1 (0-5) /hpf Ur Squamous Epith Cells 14 H (0-4) /hpf Urine Mucus Many H (None) /hpf Disposition Clinical Impression: Subchorionic hemorrhage in first trimester Disposition: HOME SELF-CARE Condition: Stable Instructions (If sedation given, give patient instructions): Subchorionic Hemorrhage (ED) Additional Instructions: Please return to the Emergency Department if symptoms worsen or any other concerns. Is patient prescribed a controlled substance at d/c from ED?: No Referrals: Taiwo Hernandez [Primary Care Provider] - 1-2 days Time of Disposition: 11:43
[2024-06-03 10:43] LABS: Appearance,Urine Cloudy (Clear); Bilirubin,Urine Negative (Negative); Blood,Urine Trace (Negative); Color,Urine Yellow; Glucose,Urine (UA) Negative (Negative); Ketones,Urine Negative (Negative); Leukocyte Esterase,Urine Trace (Negative); Mucus,Urine Many /hpf; Nitrite,Urine Negative (Negative); Protein,Urine Negative (Negative); RBC,Urine 1 /hpf (0-5); Specific Gravity,Urine 1.022 (1.001-1.035); Squamous Epithelial Cell,Urine 14 /hpf (0-4); Urobilinogen,Urine <2.0 mg/dL (<2.0); WBC,Urine 1 /hpf (0-5)
[2024-06-03 10:49] LABS: Basophils % (A) 1 %; Eosinophils # (A) 0.4 k/uL (0-0.7); Eosinophils % (A) 6 %; HCT 32.5 % (34.0-46.0); HGB 10.4 gm/dL (11.4-16.0); Hypochromasia Slight; Lymphocytes # (A) 1.5 k/uL (1.0-4.8); Lymphocytes % (A) 24 %; MCH 25.5 pg (25.0-35.0); MCV 79.7 fL (80.0-100.0); Mean Platelet Volume 7.8; Monocytes # (A) 0.4 k/uL (0-1.0); Monocytes % (A) 6 %; Neutrophils # (A) 3.9 k/uL (1.3-7.7); Neutrophils % (A) 63 %; Platelet Count 220 k/uL (150-450); RBC 4.08 m/uL (3.80-5.40); RDW 14.4 % (11.5-15.5); WBC 6.2 k/uL (3.8-10.6)
[2024-06-03 10:55] LABS: African American GFR (CKD) >90 (>60 ml/min/1.73 sqM); Anion Gap 8 mmol/L; Blood Urea Nitrogen 10 mg/dL (7-17); Carbon Dioxide 23 mmol/L (22-30); Chloride 104 mmol/L (98-107); Glucose 86 mg/dL (74-99); Non-African American GFR(CKD) >90 (>60 ml/min/1.73 sqM); Potassium 4.3 mmol/L (3.5-5.1); Sodium 135 mmol/L (137-145)
--- NOTE | 2024-06-03 11:31 | US ---
EXAMINATION TYPE: Transabdominal DATE OF EXAM: 06/03/2024 10:59 AM COMPARISON: NONE CLINICAL INDICATION: Female, 34 years old with history of bleeding,pain; pink spotting when wiping x 2 days, , h/o left oophorectomy due to 9lb cyst at age 15, mild back pain now TECHNIQUE: OBTA with grayscale and color Doppler imaging including first trimester . FINDINGS: EXAM MEASUREMENTS: GESTATIONAL AGE / DATING Physician Established: Not yet established Dates by LMP: (7 weeks/5 days) EDC: 01/15/2025 Dates by First Scan: No previous this is first scan Dates by Current Scan for: (7 weeks/1 days) EDC: 01/19/2025 MATERNAL ANATOMY Uterus: 11.8 x 8.5 x 5.6cm Right Ovary: 2.7 x 2.2 x 1.9cm Left Ovary: surgically absent Post CDS / Adnexa: wnl Presence of free fluid: no Presence of corpus luteal cyst: not seen Presence of subchorionic bleed: possible small bleed, 0.8 x 1.2 x 0.5cm GESTATION / SURVEY CRL: 1.0xm (7 weeks/1 days) Gestational Sac morphology: Normal Yolk Sac (normal less than 6mm): 0.3cm Heart Rate: 161 bpm Rhythm: Normal IUP: Viable IUP Date of LMP: 04/10/2024 Beta HcG (if available): pending IMPRESSION: 1. 1. Single intrauterine gestation estimated at 7 weeks 1 day gestation based on crown-rump length. Car diac activity measures 161 bpm. 2. Small subchorionic hemorrhage adjacent. [facility], , 06/03/2024 11:29 AM
[2024-06-03 12:15] VITALS: BP 100/67; PULSE 74; RESP 16
== END 2024-06-03 12:15 | disposition home or self-care (01) ==
LOC: EC 09:44
DX: O20.8 Other hemorrhage in early pregnancy (principal); Z3A.01 Less than 8 weeks gestation of pregnancy
CPT/HCPCS: 36415; 76801; 80048; 81001; 84702; 85025; 99284

== ENCOUNTER → 2024-11-08 | Outpatient (CLI) | payer OTHER ==
[~2024-11-08] MED LIST changes: -DEXAMETHASONE SOD PHOSPHATE 10 MG/ML 1 ML VIAL IV ONE; -DEXAMETHASONE SOD PHOSPHATE 4 MG/ML 1 ML VIAL IV ONE; -FAMOTIDINE 20 MG/2 ML VIAL IV ONE; -LACTATED RINGERS 1,000 ML IV SCH; -MIDAZOLAM 2 MG/2 ML VIAL IV PRN; -ONDANSETRON 4 MG/2 ML VIAL IVP ONE; +SODIUM CHLORIDE 0.9% 250 ML in EMPTY BAG 1 BAG IV PRN; -ceFAZolin 1,000 MG in DEXTROSE/WATER 1 50ML.BAG IV ONE; -fentaNYL (PF) 50 MCG/ML 2 ML AMP IV PRN
[2024-11-08 11:13] VITALS: BP 114/74; PULSE 108; RESP 16; TEMP 98.1
[2024-11-08] MEDS: SODIUM CHLORIDE 0.9% 500 ML 500 ML in EMPTY BAG 1 BAG IV PRN (11:13)
[2024-11-08] MEDS: SODIUM FERRIC GLUCONAT-SUCROSE 125 MG in SODIUM CHLORIDE 0.9% 100 ML IVPB ONE (11:14)
== END ==
LOC: PROCWHC3 11:00
PROVIDERS: ATTEND Obstetrics & Gynecology Obstetrics
DX: O99.019 Anemia complicating pregnancy, unspecified trimester (principal); D64.9 Anemia, unspecified; Z3A.00 Weeks of gestation of pregnancy not specified
CPT/HCPCS: 96365; J2916

== ENCOUNTER 2024-11-18 23:14 | Outpatient (CLI) | payer OTHER ==
[2024-11-19 00:19] VITALS: BP 116/68; PULSE 98; RESP 16; TEMP 97.1
--- NOTE | 2025-01-11 09:39 | P.MSEPDOC ---
Presenting Problems - Arrival Data Date of Arrival on Unit: 11/18/24 Time of Arrival on Unit: 23:14 Mode of Transport: Ambulatory - Complaint OB-Reason for Admission/Chief Complaint: Vaginal Bleeding Comment: Patient presents to triage for spotting and cramping Medical History - Information : 3 Para: 2 Term: 2 : 0 Abortions: Spontaneous or Elective: 0 Number of Living Children: 2 - Gestational Age Gestational Age by LAURA (wks/days): 31 Weeks and 6 Days Review of Systems - Review of Systems Constitutional: No problems Breast: No problems ENT: No problems Cardiovascular: No problems Respiratory: No problems Gastrointestinal: No problems Genitourinary: No problems Musculoskeletal: No problems Neurological: No problems Skin: No problems Vital Signs - Temperature Temperature: 97.1 F Temperature Source: Temporal Artery Scan - Pulse Pulse Oximetery Pulse Rate: 98 Pulse Assessment Method: Pulse Oximetry - Respirations Respiratory Rate: 16 Oxygen Delivery Method: Room Air O2 Sat by Pulse Oximetry: 97 - Blood Pressure Right Arm Blood Pressure: 116/68 Blood Pressure Mean: 84 Blood Pressure Source: Automatic Cuff Physician Notification - Physician Notified Physician Notified Date: 11/19/24 Physician Notified Time: 23:44 Physician: Shameka Rosario New Order Received: Yes (Discharge) Maternal Triage Index - Maternal Triage Index Presenting for scheduled procedure w/no complaint: No - Stat/Priority 1 Stat Priority 1: No - Urgent/Priority 2 Urgent Priority 2: No - Prompt/Priority 3 Prompt Priority 3: No - Non-Urgent/Priority 4 Non-Urgent Priority 4: Yes Criteria Met for Priority 4: Patient presents to triage for spotting and cramping Disposition - Disposition OB Disposition: Discharge to home Discharge Date: 11/19/24 Discharge Time: 00:18 I agree with the RN Medical Screening Exam: Yes Case reviewed; plan agreed upon as documented in EMR&OBIX.: Yes Diagnosis: FALSE LABOR BEFORE 37 COMPLETED WEEKS OF GEST, THIRD TRI
== END 2024-11-19 00:18 | disposition home or self-care (01) ==
LOC: FBPOP 23:14
PROVIDERS: ATTEND Obstetrics & Gynecology Obstetrics
DX: O47.03 False labor before 37 completed weeks of gestation, third trimester (principal); Z3A.31 31 weeks gestation of pregnancy
CPT/HCPCS: 59025; G0463; 99213

== ENCOUNTER 2024-12-15 22:27 | Outpatient (CLI) | payer OTHER ==
[2024-12-15 23:06] VITALS: BP 119/81; PULSE 114; RESP 18
[2024-12-16 00:49] LABS: Bilirubin,Urine Negative (Negative); Blood,Urine Negative (Negative); Color,Urine Colorless; Glucose,Urine (UA) Negative (Negative); Ketones,Urine Negative (Negative); Leukocyte Esterase,Urine Negative (Negative); Nitrite,Urine Negative (Negative); PH, Urine 6.0 (5.0-8.0); Protein,Urine Negative (Negative); Specific Gravity,Urine 1.006 (1.001-1.035); Urobilinogen,Urine <2.0 mg/dL (<2.0)
--- NOTE | 2024-12-16 09:44 | P.MSEPDOC ---
Presenting Problems - Arrival Data Date of Arrival on Unit: 12/15/24 Time of Arrival on Unit: 22:27 Mode of Transport: Ambulatory - Complaint OB-Reason for Admission/Chief Complaint: Possible Onset of Labor Medical History - Information : 3 Para: 2 Term: 2 : 0 Abortions: Spontaneous or Elective: 0 Number of Living Children: 2 - Gestational Age Gestational Age by LAURA (wks/days): 35 Weeks and 5 Days Review of Systems - Review of Systems Constitutional: No problems Breast: No problems ENT: No problems Cardiovascular: No problems Respiratory: No problems Gastrointestinal: No problems Genitourinary: No problems Musculoskeletal: No problems Neurological: No problems Skin: No problems Vital Signs - Pulse Right Pulse Oximetery Pulse Rate: 114 Pulse Assessment Method: Pulse Oximetry - Respirations Respiratory Rate: 18 Oxygen Delivery Method: Room Air O2 Sat by Pulse Oximetry: 98 - Blood Pressure Right Arm Sitting Blood Pressure: 119/81 Blood Pressure Mean: 93 Blood Pressure Source: Automatic Cuff Medical Screen Scoring - Cervical Exam Membranes: Intact - Uterine Contractions Intensity: Mild Resting: Soft to palpation - Assessment - Baby A Baseline FHR: 125 Heart Rate - NICHD Category: Category I (Normal) NST: Reactive Physician Notification - Physician Notified Physician Notified Date: 12/15/24 Physician Notified Time: 23:50 Physician: Braxton Freitas Maternal Triage Index - Maternal Triage Index Presenting for scheduled procedure w/no complaint: No - Stat/Priority 1 Stat Priority 1: No - Urgent/Priority 2 Urgent Priority 2: No - Prompt/Priority 3 Prompt Priority 3: Yes Criteria Met for Priority 3: Pt is a with LAURA 01/15/25 here at 35.4 weeks of gestation with c/o UCs throughout the day, worsening over the last hour or so. Pt also reports some vaginal/rectal pressure, which is new for her. Pt denies complications with the . Disposition - Disposition OB Disposition: Discharge to home Discharge Date: 12/16/24 Discharge Time: 01:13 I agree with the RN Medical Screening Exam: Yes Physician's MSE Comment: I have neither seen nor examined the patient. Case reviewed; plan agreed upon as documented in EMR&OBIX.: Yes Diagnosis: RELATED CONDITIONS, UNSPECIFIED, THIRD TRIMESTER
== END 2024-12-16 01:10 | disposition home or self-care (01) ==
LOC: FBPOP 22:27
PROVIDERS: ATTEND Obstetrics & Gynecology
DX: O26.893 Other specified pregnancy related conditions, third trimester (principal); Z3A.35 35 weeks gestation of pregnancy
CPT/HCPCS: 59025; 81003; G0463; 99213

== ENCOUNTER → 2024-12-20 | Outpatient (CLI) | payer OTHER ==
[2024-12-20] MEDS: IRON SUCROSE 200 MG in SODIUM CHLORIDE 0.9% 100 ML IVPB NR (13:53)
[2024-12-20] MEDS: SODIUM CHLORIDE 0.9% 500 ML 500 ML in EMPTY BAG 1 BAG IV PRN (13:53)
[2024-12-20 13:56] VITALS: BP 115/77; PULSE 120; RESP 16; TEMP 97.8
== END ==
LOC: PROCWHC3 13:32
PROVIDERS: ATTEND Obstetrics & Gynecology
DX: O99.013 Anemia complicating pregnancy, third trimester (principal); D64.9 Anemia, unspecified; Z3A.00 Weeks of gestation of pregnancy not specified
CPT/HCPCS: 96365; J1756